=== PATIENT | male | born 1955 | race Caucasian/White ===

== ENCOUNTER 2017-05-06 22:16 | Inpatient (IN) ==
[2017-05-06] MEDS ORDERED: *HR* Dextrose 50 % in Water (Syg) 50 ML SYRINGE IVP ONE (23:12)
[2017-05-06 23:21] LABS: Basophils # 0.1 K/mcL (0.0-0.2); Basophils % 0.9 %; Eosinophils # 0.4 K/mcL (0.0-0.6); Eosinophils % 3.2 %; Hematocrit 46.4 % (37.5-50.1); Hemoglobin 15.2 g/dL (12.9-16.9); Immature Granulocytes % 0.5 % (0-4); Lymphocytes # 4.6 K/mcL (0.6-4.6); Lymphocytes % 35.5 %; Mean Corpuscular HGB Conc 32.8 g/dL (31.6-35.5); Mean Corpuscular Hemoglobin 27.7 pg (28.0-33.3); Mean Corpuscular Volume 84.5 fL (83.0-100.0); Mean Platelet Volume 10.1 fL (9.4-12.4); Monocytes # 0.7 K/mcL (0.0-1.3); Monocytes % 5.5 %; Platelet Count 351 K/mcL (140-400); Red Blood Count 5.49 M/mcL (4.19-5.50); Red Cell Distribution Width 14.9 % (11.5-14.5); Segmented Neutrophils % 54.4 %
[2017-05-06 23:29] LABS: BUN/Creatinine Ratio 17 (6-26); Blood Urea Nitrogen 13 mg/dL (8-26); Calcium 9.7 mg/dL (8.6-10.8); Carbon Dioxide 20 mEq/L (19-29); Chloride 105 mEq/L (98-109); Osmolality,Calculated 279 (280-300); Potassium 3.9 mEq/L (3.5-4.5); Sodium 136 mEq/L (136-145); eGFR For African Americans > 60 (> 60); eGFR For Non-African Americans > 60 (> 60)
[2017-05-06 23:31] LABS: Glucose 35 mg/dL (70-99)
[2017-05-06 23:33] LABS: INR 5.2; Prothrombin Time 59.5 Seconds (9.4-12.1)
--- NOTE | 2017-05-07 00:53 | Emergency Department Note ---
Disposition Clinical Impression: Hypoglycemia, Elevated INR (international normalized ratio) due to prior anticoagulant medication ingestion Altered mental status Qualifiers: Altered mental status type: transient alteration of awareness Qualified Code(s) : R40.4 - Transient alteration of awareness Disposition: Transfer SNF Condition: Good Instructions: Diabetic Hypoglycemia (ED) Reasons to Return/Additional Instructions: Hold Coumadin dose for 2 days and then recheck pro-time. Follow-up tomorrow with urology as scheduled. Follow-up with primary care provider in next 1-2 days. Monitor blood sugar closely for the next 48 hours. Return to the emergency department as needed if symptoms persist or worsen or other symptoms develop or any other concerns. Referrals: Seven Jean MD [Primary Care Provider] - Forms: ED Satisfaction Letter Time of Disposition: 01:14 Altered Mental Status HPI - General Chief Complaint: ED Altered Mental Status Stated Complaint: AMS Time Seen by Provider: 05/06/17 22:16 Source: family, EMS Limitations: altered mental status Nursing Notes Reviewed: Yes Vital Signs Reviewed: Yes - History of Present Illness HPI Narrative: 62-year-old male presents to the emergency department for altered mental status from a local [facility]. He was found unresponsive. He has a history of 2 strokes in December and is in the [facility] for this. He has aphasia. Patient unresponsive with head and eyes deviated to the right. EMS reports fingerstick blood sugar of 18. He was given glucagon per EMS prior to arrival and is starting to open his eyes a little more and move his eyes a little. Fingerstick blood sugar here in the emergency department on arrival was 43. IV established and patient was given an amp of D50 and began to move and wake up immediately and after observation and is now back to his baseline mental status per family. reports that they just started him on some antibiotics for UTI. He has an indwelling Ya which has been in place for about 3 weeks per . Very foul appearing cloudy urine in the Ya tubing and bag. Ya catheter was removed. It has not appointment with urology tomorrow. The tech was unable to insert a new Ya and patient was urinating after the Ya was removed. We are going to leave the Ya out for now since he has an appointment tomorrow. complaint: altered mental status - Related Data Home Medications Medication Instructions Recorded Confirmed Acetaminophen [Non-Aspirin] 325 mg PO 03/17/17 Amlodipine Besylate 10 mg PO 03/17/17 Atorvastatin Calcium [Lipitor] 80 mg PO 03/17/17 Carvedilol [Coreg] 6.25 mg PO BIDWM 03/17/17 03/17/17 Chlorhexidine [Chlorhexidine 1 ml MC 03/17/17 Flavor] DULoxetine [Cymbalta] 30 mg PO DAILY 03/17/17 03/17/17 GlipiZIDE [Glipizide ER] 10 mg PO 03/17/17 Ipratropium/Albuterol Neb [Duoneb] 3 ml IH Q6HR 03/17/17 03/17/17 Metoclopramide [Reglan] 10 mg PO 03/17/17 Pantoprazole Sodium [Protonix] 40 mg PO 03/17/17 Quetiapine Fumarate [Quetiapine 50 mg PO 03/17/17 Fumarate ER] Sulfamethoxazole/Trimeth Oral 20 ml PO BID 03/17/17 03/17/17 [Bactrim Susp 400-80mg/10mL] Warfarin [Coumadin] 5 mg PO 1800 03/17/17 03/17/17 clonazePAM [Klonopin] 0.5 mg PO BID 03/17/17 03/17/17 metFORMIN [Glucophage] 1,000 mg PO BIDWM 03/17/17 03/17/17 Allergies Allergy/AdvReac Type Severity Reaction Status Date / Time amlodipine [From Norvasc] Allergy See Verified 03/26/17 11:34 Comments Amoxicillin [From Trimox] Allergy See Verified 03/26/17 11:34 Comments Penicillins Allergy See Verified 03/26/17 11:34 Comments Limitations: ROS unobtainable due to patients medical condition Past Medical History - Past Medical History Medical history: Reports: CHF, COPD, CVA, diabetes, hyperlipidemia, hypertension , myocardial infarction, valvular heart disease, other Psychiatric history: Reports: depression - Social History Smoking Status: Former smoker Smokeless Tobacco Status: No Alcohol use: Reports: none Drug use: Reports: none Physical Exam - General Limitations: altered mental status General appearance: in no apparent distress, obtunded - Head Head exam: atraumatic - Eye Eye exam: Present: PERRL, other (Eyes deviated to the right mostly but was some spontaneous movement in different directions.). Absent: conjunctival injection - ENT ENT exam: normal oropharynx, mucous membranes moist - Neck Neck exam: Absent: lymphadenopathy - Chest Chest inspection: Present: normal inspection, symmetric chest wall rise - Respiratory Respiratory exam: Present: normal lung sounds bilaterally. Absent: respiratory distress, wheezes - Cardiovascular Cardiovascular exam: Present: regular rate, normal rhythm, normal heart sounds - Abdominal Exam Abdominal exam: Present: soft, Non-Tender, normal bowel sounds - Skin Skin exam: Present: warm, dry. Absent: cyanosis, diaphoresis Course Course Narrative: Patient presented from [facility] unresponsive. EMS fingerstick was 18 and fingerstick here was 43. IV established and patient given IV D50 with return to his baseline mental status. Ya catheter removed. Fingerstick blood sugar or treatment or to discharge was 115. Patient also noted to have an elevated INR. Recommend withhold Coumadin for 2 days and recheck. Vital Signs Temperature 97.1 F L 05/06/17 22:17 Pulse Rate 75 05/06/17 22:17 Respiratory Rate 12 05/06/17 22:17 Blood Pressure 146/87 05/06/17 22:17 O2 Sat by Pulse Oximetry 95 05/06/17 22:17 Temperature 97.1 F L 05/06/17 22:17 Pulse Rate 80 05/07/17 00:17 Respiratory Rate 14 05/07/17 00:17 Blood Pressure 136/91 05/07/17 00:17 O2 Sat by Pulse Oximetry 100 05/07/17 00:17 Oxygen Delivery Oxygen Delivery Room Air Altered Mental Status - Lab Data Lab results reviewed: Yes I reviewed the patient's lab results. Result diagrams: 05/06/17 22:23 05/06/17 22:23 Lab Results 05/06/17 05/06/17 05/06/17 Range/Units 22:18 22:23 22:23 WBC 12.9 H (4.3-11.1) K/mcL RBC 5.49 (4.19-5.50) M/mcL Hgb 15.2 (12.9-16.9) g/dL Hct 46.4 (37.5-50.1) % MCV 84.5 (83.0-100.0) fL MCH 27.7 L (28.0-33.3) pg MCHC 32.8 (31.6-35.5) g/dL RDW 14.9 H (11.5-14.5) % Plt Count 351 (140-400) K/mcL MPV 10.1 (9.4-12.4) fL Immature Gran % 0.5 (0-4) % Seg Neutrophils % 54.4 % Lymphocytes % 35.5 % Monocytes % 5.5 % Eosinophils % 3.2 % Basophils % 0.9 % Neutrophils # 7.0 (1.6-8.9) K/mcL Lymphocytes # 4.6 (0.6-4.6) K/mcL Monocytes # 0.7 (0.0-1.3) K/mcL Eosinophils # 0.4 (0.0-0.6) K/mcL Basophils # 0.1 (0.0-0.2) K/mcL PT 59.5 H* (9.4-12.1) Seconds INR 5.2 H* Sodium (136-145) mEq/L Potassium (3.5-4.5) mEq/L Chloride (98-109) mEq/L Carbon Dioxide (19-29) mEq/L BUN (8-26) mg/dL Creatinine (0.72-1.25) mg/dL Est GFR ( Amer) (> 60) Est GFR (Non-Af Amer) (> 60) BUN/Creatinine Ratio (6-26) Glucose (70-99) mg/dL POC Glucose 43 L* (58-89) Calculated Osmolality (280-300) Calcium (8.6-10.8) mg/dL Troponin I (0-0.03) ng/mL 05/06/17 05/06/17 05/07/17 Range/Units 22:23 22:23 00:13 WBC (4.3-11.1) K/mcL RBC (4.19-5.50) M/mcL Hgb (12.9-16.9) g/dL Hct (37.5-50.1) % MCV (83.0-100.0) fL MCH (28.0-33.3) pg MCHC (31.6-35.5) g/dL RDW (11.5-14.5) % Plt Count (140-400) K/mcL MPV (9.4-12.4) fL Immature Gran % (0-4) % Seg Neutrophils % % Lymphocytes % % Monocytes % % Eosinophils % % Basophils % % Neutrophils # (1.6-8.9) K/mcL Lymphocytes # (0.6-4.6) K/mcL Monocytes # (0.0-1.3) K/mcL Eosinophils # (0.0-0.6) K/mcL Basophils # (0.0-0.2) K/mcL PT (9.4-12.1) Seconds INR Sodium 136 (136-145) mEq/L Potassium 3.9 (3.5-4.5) mEq/L Chloride 105 (98-109) mEq/L Carbon Dioxide 20 (19-29) mEq/L BUN 13 (8-26) mg/dL Creatinine 0.77 (0.72-1.25) mg/dL Est GFR ( Amer) > 60 (> 60) Est GFR (Non-Af Amer) > 60 (> 60) BUN/Creatinine Ratio 17 (6-26) Glucose 35 L* (70-99) mg/dL POC Glucose 115 H (58-89) Calculated Osmolality 279 L (280-300) Calcium 9.7 (8.6-10.8) mg/dL Troponin I 0.02 (0-0.03) ng/mL - Radiology Data Radiology results reviewed: Yes I reviewed the patient's radiology results. Chest X-Ray 05/06/17 23:12 IMPRESSION: Hazy opacity in the left lung base. This is suggestive us left pleural effusion and partial left lower lobe atelectasis. Underlying pneumonia is not excluded D/ / Rayshawn Barrientos MD / Rayshawn Barrientos MD Interpreting Provider: Rayshawn Barrientos MD - EKG Data EKG attestation: Yes I reviewed and interpreted this EKG. EKG results narrative: Normal sinus rhythm, heart rate 75, left axis deviation, no acute change. EKG shows normal: sinus rhythm Rate: normal Rhythm: NSR Interpretation: no acute changes TPA Checklist - LKW: 3-4.5 hrs Add. Warnings/Precautions Patient/family understanding: The patient/family members have been counseled and understood the risk, benefit , and alternatives of treatment.
[2017-05-07] MEDS ORDERED: *HR* Dextrose 50 % in Water (Syg) 50 ML SYRINGE IVP ONE (01:34)
--- NOTE | 2017-05-07 02:11 | Emergency Department Note ---
Disposition Clinical Impression: Hypoglycemia, Elevated INR (international normalized ratio) due to prior anticoagulant medication ingestion Altered mental status Qualifiers: Altered mental status type: transient alteration of awareness Qualified Code(s) : R40.4 - Transient alteration of awareness Disposition: Admitted As Inpatient Condition: Fair Altered Mental Status HPI - General Chief Complaint: ED Altered Mental Status Stated Complaint: AMS Source: family, EMS Limitations: altered mental status - Related Data Home Medications Medication Instructions Recorded Confirmed Acetaminophen [Non-Aspirin] 325 mg PO 03/17/17 Amlodipine Besylate 10 mg PO 03/17/17 Atorvastatin Calcium [Lipitor] 80 mg PO 03/17/17 Carvedilol [Coreg] 6.25 mg PO BIDWM 03/17/17 03/17/17 Chlorhexidine [Chlorhexidine 1 ml MC 03/17/17 Flavor] DULoxetine [Cymbalta] 30 mg PO DAILY 03/17/17 03/17/17 GlipiZIDE [Glipizide ER] 10 mg PO 03/17/17 Ipratropium/Albuterol Neb [Duoneb] 3 ml IH Q6HR 03/17/17 03/17/17 Metoclopramide [Reglan] 10 mg PO 03/17/17 Pantoprazole Sodium [Protonix] 40 mg PO 03/17/17 Quetiapine Fumarate [Quetiapine 50 mg PO 03/17/17 Fumarate ER] Sulfamethoxazole/Trimeth Oral 20 ml PO BID 03/17/17 03/17/17 [Bactrim Susp 400-80mg/10mL] Warfarin [Coumadin] 5 mg PO 1800 03/17/17 03/17/17 clonazePAM [Klonopin] 0.5 mg PO BID 03/17/17 03/17/17 metFORMIN [Glucophage] 1,000 mg PO BIDWM 03/17/17 03/17/17 Allergies Allergy/AdvReac Type Severity Reaction Status Date / Time amlodipine [From Norvasc] Allergy See Verified 03/26/17 11:34 Comments Amoxicillin [From Trimox] Allergy See Verified 03/26/17 11:34 Comments Penicillins Allergy See Verified 03/26/17 11:34 Comments Past Medical History - Past Medical History Medical history: Reports: CHF, COPD, CVA, diabetes, hyperlipidemia, hypertension , myocardial infarction, valvular heart disease, other Psychiatric history: Reports: depression - Social History Smoking Status: Former smoker Smokeless Tobacco Status: No Alcohol use: Reports: none Drug use: Reports: none Physical Exam - General Limitations: altered mental status General appearance: in no apparent distress, obtunded Course Course Narrative: Plan was to discharge the patient back to the senior living however this before returning to the senior living patient became a little less responsive and repeat fingerstick blood sugar had dropped back down to 55. He was given another amp of D50. On discussing with the senior living it was learned that the patient is not on insulin and is just on metformin. Decision was made to go ahead and admit patient here since he has recurrent hypoglycemia on an oral agent. - Consultations Consultation #1: Case discussed with the hospitalist, Dr. Ortega, and she accepted the admission of the patient. Time: 02:00 Vital Signs Temperature 97.1 F L 05/06/17 22:17 Pulse Rate 75 05/06/17 22:17 Respiratory Rate 12 05/06/17 22:17 Blood Pressure 146/87 05/06/17 22:17 O2 Sat by Pulse Oximetry 95 05/06/17 22:17 Temperature 97.1 F L 05/06/17 22:17 Pulse Rate 80 05/07/17 00:17 Respiratory Rate 14 05/07/17 00:17 Blood Pressure 136/91 05/07/17 00:17 O2 Sat by Pulse Oximetry 100 05/07/17 00:17 Oxygen Delivery Oxygen Delivery Room Air Altered Mental Status - Lab Data Result diagrams: 05/06/17 22:23 05/06/17 22:23 Lab Results 05/06/17 05/06/17 05/06/17 Range/Units 22:18 22:23 22:23 WBC 12.9 H (4.3-11.1) K/mcL RBC 5.49 (4.19-5.50) M/mcL Hgb 15.2 (12.9-16.9) g/dL Hct 46.4 (37.5-50.1) % MCV 84.5 (83.0-100.0) fL MCH 27.7 L (28.0-33.3) pg MCHC 32.8 (31.6-35.5) g/dL RDW 14.9 H (11.5-14.5) % Plt Count 351 (140-400) K/mcL MPV 10.1 (9.4-12.4) fL Immature Gran % 0.5 (0-4) % Seg Neutrophils % 54.4 % Lymphocytes % 35.5 % Monocytes % 5.5 % Eosinophils % 3.2 % Basophils % 0.9 % Neutrophils # 7.0 (1.6-8.9) K/mcL Lymphocytes # 4.6 (0.6-4.6) K/mcL Monocytes # 0.7 (0.0-1.3) K/mcL Eosinophils # 0.4 (0.0-0.6) K/mcL Basophils # 0.1 (0.0-0.2) K/mcL PT 59.5 H* (9.4-12.1) Seconds INR 5.2 H* Sodium (136-145) mEq/L Potassium (3.5-4.5) mEq/L Chloride (98-109) mEq/L Carbon Dioxide (19-29) mEq/L BUN (8-26) mg/dL Creatinine (0.72-1.25) mg/dL Est GFR ( Amer) (> 60) Est GFR (Non-Af Amer) (> 60) BUN/Creatinine Ratio (6-26) Glucose (70-99) mg/dL POC Glucose 43 L* (58-89) Calculated Osmolality (280-300) Calcium (8.6-10.8) mg/dL Troponin I (0-0.03) ng/mL 05/06/17 05/06/17 05/07/17 Range/Units 22:23 22:23 00:13 WBC (4.3-11.1) K/mcL RBC (4.19-5.50) M/mcL Hgb (12.9-16.9) g/dL Hct (37.5-50.1) % MCV (83.0-100.0) fL MCH (28.0-33.3) pg MCHC (31.6-35.5) g/dL RDW (11.5-14.5) % Plt Count (140-400) K/mcL MPV (9.4-12.4) fL Immature Gran % (0-4) % Seg Neutrophils % % Lymphocytes % % Monocytes % % Eosinophils % % Basophils % % Neutrophils # (1.6-8.9) K/mcL Lymphocytes # (0.6-4.6) K/mcL Monocytes # (0.0-1.3) K/mcL Eosinophils # (0.0-0.6) K/mcL Basophils # (0.0-0.2) K/mcL PT (9.4-12.1) Seconds INR Sodium 136 (136-145) mEq/L Potassium 3.9 (3.5-4.5) mEq/L Chloride 105 (98-109) mEq/L Carbon Dioxide 20 (19-29) mEq/L BUN 13 (8-26) mg/dL Creatinine 0.77 (0.72-1.25) mg/dL Est GFR ( Amer) > 60 (> 60) Est GFR (Non-Af Amer) > 60 (> 60) BUN/Creatinine Ratio 17 (6-26) Glucose 35 L* (70-99) mg/dL POC Glucose 115 H (58-89) Calculated Osmolality 279 L (280-300) Calcium 9.7 (8.6-10.8) mg/dL Troponin I 0.02 (0-0.03) ng/mL 05/07/17 Range/Units 01:24 WBC (4.3-11.1) K/mcL RBC (4.19-5.50) M/mcL Hgb (12.9-16.9) g/dL Hct (37.5-50.1) % MCV (83.0-100.0) fL MCH (28.0-33.3) pg MCHC (31.6-35.5) g/dL RDW (11.5-14.5) % Plt Count (140-400) K/mcL MPV (9.4-12.4) fL Immature Gran % (0-4) % Seg Neutrophils % % Lymphocytes % % Monocytes % % Eosinophils % % Basophils % % Neutrophils # (1.6-8.9) K/mcL Lymphocytes # (0.6-4.6) K/mcL Monocytes # (0.0-1.3) K/mcL Eosinophils # (0.0-0.6) K/mcL Basophils # (0.0-0.2) K/mcL PT (9.4-12.1) Seconds INR Sodium (136-145) mEq/L Potassium (3.5-4.5) mEq/L Chloride (98-109) mEq/L Carbon Dioxide (19-29) mEq/L BUN (8-26) mg/dL Creatinine (0.72-1.25) mg/dL Est GFR ( Amer) (> 60) Est GFR (Non-Af Amer) (> 60) BUN/Creatinine Ratio (6-26) Glucose (70-99) mg/dL POC Glucose 55 L (58-89) Calculated Osmolality (280-300) Calcium (8.6-10.8) mg/dL Troponin I (0-0.03) ng/mL TPA Checklist - LKW: 3-4.5 hrs Add. Warnings/Precautions Patient/family understanding: The patient/family members have been counseled and understood the risk, benefit , and alternatives of treatment.
--- NOTE | 2017-05-07 03:14 | Internal Med History&Physical ---
Date of Encounter: 05/07/17 Time of Encounter: 03:06 Assessment and Plan (1) Hypoglycemia Current visit: Yes Status: Acute Patient is a general medical floor with episode of hypoglycemia with glucose lower cord at 18. Received D50 in the emergency department with slight elevation in glucose and then became hypoglycemic at 50. Glucose 118 at time of transfer to floor. - Patient's medication list chemistries glipizide. Unknown if patient still taking subcutaneous insulin at nursing facility. - Patient alert and oriented interactive, stable. - Patient is urinary tract infection but does not appear to be septic. Plan: - Admit to general medical floor - Every hour glucose checks for 6 hours - D50 and normal saline drip at 75 ML's per hour - Glucagon available for hypoglycemic events. (2) Urinary tract infection Current visit: Yes Status: Acute Patient currently receiving oral treatment with TMP-SMX for urinary tract infection. Patient's family present out of hospital urine culture results demonstrated Klebsiella and Escherichia coli that were pansensitive. Plan: - Drainage of indwelling catheter - IV ceftriaxone 1000 mg daily - Urinalysis with reflex culture Qualifiers: Qualified Code(s): N39.0 - Urinary tract infection, site not specified (3) Mechanical heart valve present Current visit: Yes Status: Acute Mechanical heart valve: - Patient on warfarin therapy currently supratherapeutic with an INR 5.5 Plan: -INR goal of 3.0-3.5 (4) Coronary artery disease Current visit: Yes Status: Acute Significant medical history for coronary artery disease, previous [place], ischemic stroke, CABG, femorofemoral bypass. Plan: -We will continue atorvastatin and beta dixon Qualifiers: Qualified Code(s): I25.10 - Atherosclerotic heart disease of [place] coronary artery without angina pectoris (5) Elevated INR (international normalized ratio) due to prior anticoagulant medication ingestion Current visit: Yes Status: Acute INR 5.5, goal 3.0-3.5 Plan: - Pharmacy to dose warfarin, we will hold today's dose. Internal Medicine - H&P: HPI Chief complaint: hypoglycemia Admitted From: Emergency Dept Plans for Post Hospital Care: Home History of present illness: Mr. Carrasco is a 62 year old male past medical hx of DM, Hemorrhagic stroke, ischemic stroke, CABG, mechanical heart valve, aphasia and right sided weakness presents to the emergency department from his long-term after he was found to be altered and a glucose of 18. He does not speak so his at bedside provides details. She went to see him around noon yesterday and noticed that he was not responding like his normal self. She usually shows up to help care for him and feed him. She was concerned for his condition and they checked his glucose and found it to be 18. She says he has had low glucoses in the past but usually only as low as 90. He take glipizide and is unsure if he is still receiving SQ insulin. He nods yes to being diaphoretic the past couple of days and had some episodes of diarrhea but his says they checked for C.diff and it is negative thus far. He is currently receiving TMP-SMX for a urinary tract infection. He nods no vomiting, constipation. He has an indwelling catheter for which his says he supposed to see urology for further evaluation. Past Med Surg Social Fam HX - Past Medical History Medical history: CHF, COPD, CVA, diabetes, hyperlipidemia, hypertension, myocardial infarction, valvular heart disease, other Psychiatric history: depression - Social History Smoking Status: Former smoker Smokeless Tobacco Status: No Alcohol use: none Drug use: none - Family History Mother Living Status: Hx Family Cardiac Disorders: Yes Hx Family Endocrine Disorder: Yes (DM) Father Living Status: Hx Family Cardiac Disorders: Yes Hx Family Endocrine Disorder: Yes (DM) Internal Medicine - H&P: Meds Acetaminophen [Non-Aspirin] 325 mg PO 03/17/17 [History] Amlodipine Besylate 10 mg PO 03/17/17 [History] Atorvastatin Calcium [Lipitor] 80 mg PO 03/17/17 [History] Carvedilol [Coreg] 6.25 mg PO BIDWM 03/17/17 [History] Chlorhexidine [Chlorhexidine Flavor] 1 ml MC 03/17/17 [History] DULoxetine [Cymbalta] 30 mg PO DAILY 03/17/17 [History] GlipiZIDE [Glipizide ER] 10 mg PO 03/17/17 [History] Ipratropium/Albuterol Neb [Duoneb] 3 ml IH Q6HR 03/17/17 [History] Metoclopramide [Reglan] 10 mg PO 03/17/17 [History] Pantoprazole Sodium [Protonix] 40 mg PO 03/17/17 [History] Quetiapine Fumarate [Quetiapine Fumarate ER] 50 mg PO 03/17/17 [History] Sulfamethoxazole/Trimeth Oral [Bactrim Susp 400-80mg/10mL] 20 ml PO BID [History] Warfarin [Coumadin] 5 mg PO 1800 03/17/17 [History] clonazePAM [Klonopin] 0.5 mg PO BID 03/17/17 [History] metFORMIN [Glucophage] 1,000 mg PO BIDWM 03/17/17 [History] Allergies amlodipine [From Norvasc] Allergy (Verified 03/26/17 11:34) See Comments Amoxicillin [From Trimox] Allergy (Verified 03/26/17 11:34) See Comments Penicillins Allergy (Verified 03/26/17 11:34) See Comments All Systems PM: A 10-system review of systems was performed and is negative for pertinent findings except as documented above in the HPI. - Constitutional Constitutional: night sweats, no chills, no fever(s) - EENT Eyes: no change in vision, no discharge, no pain, no photophobia Ears: no ear discharge, no ear pain, no tinnitus Nose, mouth and throat: no dysphagia, no nasal discharge, no neck pain, no sore throat - Cardiovascular Cardiovascular ROS IM: no chest pain, no diaphoresis, no dyspnea, no lightheadedness, no palpitations, no syncope - Respiratory Respiratory: no cough, no dyspnea, no wheezing, no excessive phlegm production - Gastrointestinal Gastrointestinal: no abdominal pain, no diarrhea, no hematemesis, no hematochezia, no melena, no nausea, no vomiting - Musculoskeletal Musculoskeletal ROS IM: no numbness, no tingling - Integumentary Integumentary IM: no rash, no unusual bruising - Neurological Neurological ROS: no confusion, no convulsions, no focal weakness, no numbness, no tingling, no tremor(s) - Hematologic/Lymphatic Hematologic/Lymphatic: no easy bruising - Constitutional Vitals: Temp Pulse Resp BP Pulse Ox 97.1 F L 80 18 126/91 100 05/06/17 22:17 05/07/17 00:17 05/07/17 02:36 05/07/17 02:36 05/07/17 00:17 Exam: General: Patient alert, awake, oriented 3, interactive, in no acute distress HEENT: Normocephalic, atraumatic, pupils equal reactive to light, nasal cavity patent and open septum median position, oral mucosa moist, uvula midline, neck supple trachea midline no palpable lymphadenopathy, no thyromegaly. Old trachea scar. Chest: Symmetric bilateral correlating with respiratory effort, effort nonlabored. Cardiac: Regular rate and rhythm, positive S1 and S2. no bruits appreciated bilateral carotids, Radial pulses 2+ bilateral, posterior tibial and dorsal pedal pulses 2+ bilateral. Respiratory: Expiratory rhonchi in right lower lung base, clear to auscultation all lung [place]. Abdomen: Soft, nontender, positive bowel sounds, no palpable masses appreciated on examination. Multiple prior surgical scars. Extremities: Symmetric bilateral, bilateral lower extremities without erythema or edema, right upper and lower extremity completely flaccid, patient is able to move left extremities. Neurologic: Patient is a failure, tongue midline face symmetric. Internal Med - H&P Results - Labs CBC & Chem 7: 05/06/17 22:23 05/06/17 22:23 Labs: Short CBC 05/06/17 Range/Units 22:23 WBC 12.9 H (4.3-11.1) K/mcL Hgb 15.2 (12.9-16.9) g/dL Hct 46.4 (37.5-50.1) % Plt Count 351 (140-400) K/mcL Neutrophils # 7.0 (1.6-8.9) K/mcL BMP 05/06/17 22:23 Sodium 136 Potassium 3.9 Chloride 105 Carbon Dioxide 20 BUN 13 Creatinine 0.77 Glucose 35 L* Calcium 9.7 Cardiac Enzymes 05/06/17 Range/Units 22:23 Troponin I 0.02 (0-0.03) ng/mL - Impressions ITS Impressions Chest X-Ray 05/06/17 23:12 IMPRESSION: Hazy opacity in the left lung base. This is suggestive us left pleural effusion and partial left lower lobe atelectasis. Underlying pneumonia is not excluded D/ / Rayshawn Barrientos MD / Rayshawn Barrientos MD Interpreting Provider: Rayshawn Barrientos MD
[2017-05-07] MEDS ORDERED: Naloxone 0.4 MG/ML INJ IVP PRN (03:16)
[2017-05-07] MEDS ORDERED: *HR* Dextrose 50 % in Water (Syg) 50 ML SYRINGE IVP PRN (03:25)
[2017-05-07] MEDS ORDERED: Dextrose Gel 15 GM PO PRN ×2 (03:25)
[2017-05-07] MEDS ORDERED: D5% in Water 1,000 ML IVC PRN (03:25)
--- NOTE | 2017-05-07 03:31 | Event Note ---
Date of Encounter: 05/07/17 Time of Encounter: 03:30 Patient seen and examined with medical receptionist medical assistant. Prolonged hypoglycemia. Will start on the D5 drip. Sugar check every one hour. Recent UTI with E. coli and Klebsiella sensitive to ceftriaxone will start. Repeat urinalysis. He has been on Bactrim. INR is 5 but No new focal neurological deficits. According to life useful code. Observation admission
[2017-05-07] MEDS: D5% in 0.9% NACL 1,000 ML IVC SCH (03:54)
[2017-05-07 04:00] LABS: Basophils # 0.1 K/mcL (0.0-0.2); Basophils % 0.5 %; Eosinophils # 0.1 K/mcL (0.0-0.6); Eosinophils % 1.3 %; Hematocrit 43.8 % (37.5-50.1); Hemoglobin 14.3 g/dL (12.9-16.9); Immature Granulocytes % 0.5 % (0-4); Lymphocytes # 2.1 K/mcL (0.6-4.6); Lymphocytes % 20.8 %; Mean Corpuscular HGB Conc 32.6 g/dL (31.6-35.5); Mean Corpuscular Hemoglobin 27.8 pg (28.0-33.3); Mean Corpuscular Volume 85.2 fL (83.0-100.0); Mean Platelet Volume 9.6 fL (9.4-12.4); Monocytes # 0.4 K/mcL (0.0-1.3); Neutrophils # 7.5 K/mcL (1.6-8.9); Platelet Count 264 K/mcL (140-400); Red Blood Count 5.14 M/mcL (4.19-5.50); Red Cell Distribution Width 14.8 % (11.5-14.5); Segmented Neutrophils % 72.9 %
[2017-05-07 04:12] LABS: Alanine Aminotransferase 8 Units/L (0-55); Albumin/Globulin Ratio 0.9 (1.1-2.2); Alkaline Phosphatase 111 Units/L (38-126); Aspartate Amino Transferase 11 Units/L (5-34); BUN/Creatinine Ratio 17 (6-26); Bilirubin,Total 0.5 mg/dL (0.2-1.2); Blood Urea Nitrogen 13 mg/dL (8-26); Calcium 9.5 mg/dL (8.6-10.8); Carbon Dioxide 23 mEq/L (19-29); Chloride 105 mEq/L (98-109); Globulin 3.4 g/dL (2.4-3.5); Glucose 70 mg/dL (70-99); Magnesium 1.5 mg/dL (1.6-2.6); Osmolality,Calculated 281 (280-300); Phosphorous 3.6 mg/dL (2.3-4.7); Potassium 4.1 mEq/L (3.5-4.5); Sodium 136 mEq/L (136-145); Total Protein 6.4 g/dL (6.0-8.3); eGFR For African Americans > 60 (> 60); eGFR For Non-African Americans > 60 (> 60)
[2017-05-07] MEDS: Magnesium Oxide 400 MG TABLET PO SCH ×2 (10:01→19:42)
--- NOTE | 2017-05-07 10:11 | Event Note ---
Date of Encounter: 05/07/17 Time of Encounter: 09:25 Patient was admitted from [facility] for hypoglycemia. He is on a D5 drip at this time and is getting Accu-Cheks every hour 6. Last one was normal at 79. Diabetic medications and been stopped. Patient has glucagon ordered for hypoglycemic events. Patient is nonverbal and has right-sided weakness from prior CVA. He is alert, and can nod his head yes and response to questions. Patient has a mechanical heart valve and is on warfarin, currently dosed by pharmacy. INR is elevated at 5.2. We will continue to monitor labs. Patient's magnesium is 1.5. I have ordered mag ox 400 mg by mouth twice a day. Patient was to have a urology appointment today with Dr. Mejia, primary nurses attempting to reach him to see if he can see the patient while in the hospital. He has a UA pending and arrived from the detention with a Ya. ER attempted to change it, however could not insert a new Ya due to enlarged prostate. He was receiving Bactrim for urinary tract infection at the detention. Patient family had urine culture from the detention that showed Klebsiella and Escherichia coli that were pansensitive. Is currently receiving Rocephin 1 g daily, we will need to collect the urine and wait on the micro-and culture. Patient has significant history of coronary artery disease with prior [place], stroke, CABG, he is already on a statin and a beta dixon. We will continue those. He also has rhonchi heard in left anterior and posterior lung barlow. Chest x-ray showed left pleural effusion with underlying pneumonia not being excluded. Addition to the Rocephin, I am adding Zithromax IV, duonebs, and albuterol treatments prn. Has no leukocytosis and no fever patient does indicate that he has a cough. He does not meet sepsis criteria currently. His abdomen is soft, rounded nontender to palpation. He does have +1 bilateral pedal pulses. We will continue to closely monitor blood sugars and respiratory status.
[2017-05-07] MEDS ORDERED: Albuterol 2.5 MG/3 ML NEBULIZER IH PRN (10:12)
[2017-05-07] MEDS: Azithromycin 500 MG in D5% in Water 250 ML IVPB SCH (11:38)
[2017-05-07] MEDS: Ipratropium/Albuterol Neb 3 ML IH SCH ×3 (11:47→19:46)
[2017-05-07 12:02] LABS: Bilirubin,Urine Negative (Negative); Blood,Urine Large (Negative); Clarity,Urine Turbid (Clear); Color,Urine Yellow (Yellow); Glucose,Urine (UA) Normal (Normal); Ketones,Urine Negative (Negative); Leukocyte Esterase,Urine Large (Negative); Nitrite,Urine Positive (Negative); PH,Urine 5.5 pH Units (5.0-8.0); Protein,Urine 30 mg/dL (Neg-Trace); Specific Gravity,Urine 1.023 (1.010-1.025); Urobilinogen,Urine Normal (Normal)
[2017-05-07 12:04] LABS: Bacteria,Urine None Seen per hpf (None-Few); Hyaline Casts,Urine None Seen per lpf (None-Few); Squamous Epithelial Cell,Urine Moderate per lpf (None-Few); WBC,Urine TNTC per hpf (0-3)
[2017-05-07 12:11] LABS: RBC,Urine 15-30 per hpf (0-3)
--- NOTE | 2017-05-07 12:30 | Electrocardiograph Report ---
[place] [id number] Test Date: 2017-05-06 Pat Name: Hunter Carrasco Department: 103 Room: 3B22 Gender: M Founding Partner: : [id number] Requested By: Jasper Roberts Order Number: [id number] Reading MD: Dean Garcia MD Measurements Intervals [place] Rate: 75 P: 60 SC: 199 QRS: -34 QRSD: 130 T: 126 QT: 405 QTc: 434 Interpretive Statements SINUS RHYTHM MARKED LEFT AXIS DEVIATION Poor R wave progression Electronically Signed On 05-07-2017 12:28:45 EDT by Dean Garcia MD
[2017-05-07] MEDS ORDERED: Warfarin perPT PO PRN (18:00)
[2017-05-07] MEDS: Acetaminophen 325 MG TABLET PO PRN (19:42)
[2017-05-08] MEDS: Ipratropium/Albuterol Neb 3 ML IH SCH ×7 (00:16→23:29)
[2017-05-08] MEDS: Acetaminophen 325 MG TABLET PO PRN (05:10)
[2017-05-08 05:22] LABS: Basophils # 0.1 K/mcL (0.0-0.2); Basophils % 0.9 %; Eosinophils # 0.2 K/mcL (0.0-0.6); Eosinophils % 3.6 %; Hematocrit 39.7 % (37.5-50.1); Hemoglobin 13.1 g/dL (12.9-16.9); Immature Granulocytes % 0.3 % (0-4); Lymphocytes # 2.2 K/mcL (0.6-4.6); Lymphocytes % 33.5 %; Mean Corpuscular Hemoglobin 27.9 pg (28.0-33.3); Mean Corpuscular Volume 84.5 fL (83.0-100.0); Mean Platelet Volume 9.4 fL (9.4-12.4); Monocytes # 0.4 K/mcL (0.0-1.3); Neutrophils # 3.7 K/mcL (1.6-8.9); Platelet Count 231 K/mcL (140-400); Red Cell Distribution Width 14.8 % (11.5-14.5); Segmented Neutrophils % 55.7 %
[2017-05-08 05:36] LABS: INR 6.1; Prothrombin Time 69.3 Seconds (9.4-12.1)
[2017-05-08 05:38] LABS: BUN/Creatinine Ratio 9 (6-26); Blood Urea Nitrogen 6 mg/dL (8-26); Calcium 8.7 mg/dL (8.6-10.8); Carbon Dioxide 21 mEq/L (19-29); Chloride 110 mEq/L (98-109); Glucose 101 mg/dL (70-99); Osmolality,Calculated 284 (280-300); Potassium 3.5 mEq/L (3.5-4.5); Sodium 138 mEq/L (136-145); eGFR For African Americans > 60 (> 60); eGFR For Non-African Americans > 60 (> 60)
[2017-05-08] MEDS: D5% in 0.9% NACL 1,000 ML IVC SCH ×2 (06:04→21:38)
[2017-05-08] MEDS: Magnesium Oxide 400 MG TABLET PO SCH ×2 (09:25→20:32)
[2017-05-08] MEDS ORDERED: amLODIPine 5 MG TABLET PO SCH (11:45)
[2017-05-08] MEDS ORDERED: Lisinopril 20 MG TABLET PO SCH (11:45)
[2017-05-08] MEDS ORDERED: Vancomycin 1,500 MG in D5% in Water 250 ML IVPB SCH (12:00)
[2017-05-08] MEDS: hydrALAZINE 25 MG TABLET PO SCH ×2 (13:48→20:33)
[2017-05-08] MEDS: clonazePAM 0.5 MG TABLET PO SCH ×2 (13:48→20:33)
[2017-05-08] MEDS: Vancomycin 1,500 MG in D5% in Water 250 ML IVPB SCH (13:49)
--- NOTE | 2017-05-08 14:31 | Internal Med Progress Note ---
Date of Encounter: 05/08/17 Time of Encounter: 09:45 - Assessment and plan (1) Urinary tract infection Current Visit: Yes Status: Acute Assessment and plan: Patient being treated with ceftriaxone and azithromycin was added to his regimen for possible left lower lobe pneumonia. Preliminary culture report consistent with gram-positive cocci-likely MRSA. Vancomycin added to his regimen. Likely secondary to indwelling Ya catheter. Sensitivities pending. Leukocytosis has resolved. Vital signs are stable, no signs of sepsis. (2) Altered mental status Current Visit: Yes Status: Resolved Assessment and plan: Patient appears to be consistent with his baseline. He does have expressive aphasia secondary to prior CVA however he is able to nod and shake his head in answer simple yes or no questions. Likely secondary to hypoglycemia which has since been corrected. (3) Hypoglycemia Current Visit: Yes Status: Resolved (4) Diabetes mellitus Current Visit: Yes Status: Chronic Assessment and plan: A1c earlier this year of 7.3%. His home medication list currently does not include any diabetes medications-will obtain updated copy. Hypoglycemia has resolved, will monitor closely. Qualifiers: Diabetes mellitus type: type 2 Diabetes mellitus complication status: with hypoglycemia Diabetes mellitus complication detail: without coma Diabetes mellitus termite helper insulin use: without termite helper use Qualified Code(s): E11.649 - Type 2 diabetes mellitus with hypoglycemia without coma (5) CVA, old, aphasia Current Visit: Yes Status: Chronic Assessment and plan: He is able to answer simple yes or no questions (6) CVA, old, hemiparesis Current Visit: Yes Status: Chronic (7) HTN (hypertension) Current Visit: Yes Status: Chronic Assessment and plan: Controlled, will continue to trend (8) Elevated INR (international normalized ratio) due to prior anticoagulant medication ingestion Current Visit: Yes Status: Acute Assessment and plan: No signs of active bleeding, pharmacy to dose. Likely secondary to Bactrim which can increase INR levels. We will monitor closely. No indication for reversal agent at this time. (9) Mechanical heart valve present Current Visit: Yes Status: Chronic Assessment and plan: INR supratherapeutic (10) Coronary artery disease Current Visit: Yes Status: Chronic Assessment and plan: Patient denies chest pain or shortness of breath - Subjective Interval history: Patient seen and examined. On examination, patient resting supine in bed. Patient was initially asleep and awakened easily to voice. He denies pain or concerns at this time. He is able to answer simple yes or no questions. - Constitutional Vitals: Temp Pulse Resp BP Pulse Ox 98.6 F 80 16 135/77 99 05/08/17 11:46 05/08/17 11:46 05/08/17 11:46 05/08/17 11:46 05/08/17 11:46 General appearance: Present: A&O X 3, pleasant, no acute distress, answers questions appropriately (simple yes/no questions) - Head Head exam: Present: atraumatic, normocephalic - Eye Eye exam: Present: PERRL, conjuntiva pink, sclera anicteric Pupils: Present: PERRL - Neck Neck exam general surgery: Present: supple, trachea midline. Absent: lymphadenopathy - Respiratory Respiratory exam: Present: decreased breath sounds, rhonchi (upper airway congestion). Absent: accessory muscle use, rales, respiratory distress, wheezes - Cardiovascular Cardiovascular exam: Present: RRR, +S1, +S2. Absent: diastolic murmur, gallop, rubs, systolic murmur - GI/Abdominal GI/Abdominal exam: Present: normal bowel sounds, soft, no peritoneal signs. Absent: distended, tenderness - Extremities Exam Extremities exam: Present: warm, radial pulses palpable and symetrical. Absent : calf tenderness, cyanotic, pedal edema - Neurological Exam Neurological exam: Present: alert, altered, CN II-XII intact, oriented X3, pronater drift, speech deficit. Absent: no focal deficits, strengths equal and symetr throughout, facial droop - Expanded Neurological Exam Neurological exam expanded: Present: protecting the airway Neuro motor strength exam: LUE: 5, RUE: 4, LLE: 5 Coma Scale Eye Opening: Spontaneous Coma Scale Motor Response: Obeys Commands Coma Scale Verbal Response: None (able to answer yes/no) Coma Scale Total: 11 - Skin Skin exam: Present: dry, intact, pallor, warm Internal Medicine: Result - Labs CBC & Chem 7: 05/08/17 04:40 05/08/17 04:40 Labs: Short CBC 05/08/17 Range/Units 04:40 WBC 6.7 (4.3-11.1) K/mcL Hgb 13.1 (12.9-16.9) g/dL Hct 39.7 (37.5-50.1) % Plt Count 231 (140-400) K/mcL Neutrophils # 3.7 (1.6-8.9) K/mcL BMP 05/08/17 04:40 Sodium 138 Potassium 3.5 Chloride 110 H Carbon Dioxide 21 BUN 6 L Creatinine 0.67 L Glucose 101 H Calcium 8.7 - ABG Interpretation ABG results: PT/INR, D-dimer PT 69.3 Seconds (9.4-12.1) H* 05/08/17 04:40 Consult Discharge Plan - Plan Referrals: Seven Jean MD [Primary Care Provider] -
[2017-05-08] MEDS: traZODone 50 MG TABLET PO SCH (20:32)
[2017-05-09] MEDS: Vancomycin 1,500 MG in D5% in Water 250 ML IVPB SCH ×2 (01:13→15:32)
[2017-05-09] MEDS: Azithromycin 500 MG in D5% in Water 250 ML IVPB SCH (01:18)
[2017-05-09] MEDS: Ipratropium/Albuterol Neb 3 ML IH SCH ×6 (03:52→23:23)
[2017-05-09 06:15] LABS: INR 4.3
[2017-05-09 06:18] LABS: Prothrombin Time 48.4 Seconds (9.4-12.1)
[2017-05-09 06:27] LABS: BUN/Creatinine Ratio 8 (6-26); Calcium 8.4 mg/dL (8.6-10.8); Carbon Dioxide 23 mEq/L (19-29); Chloride 110 mEq/L (98-109); Glucose 120 mg/dL (70-99); Osmolality,Calculated 288 (280-300); Potassium 3.3 mEq/L (3.5-4.5); Sodium 140 mEq/L (136-145); eGFR For African Americans > 60 (> 60); eGFR For Non-African Americans > 60 (> 60)
[2017-05-09 06:28] LABS: Blood Urea Nitrogen 5 mg/dL (8-26)
[2017-05-09] MEDS ORDERED: Ondansetron 4 MG/2 ML VIAL IVP PRN (10:50)
[2017-05-09] MEDS: hydrALAZINE 25 MG TABLET PO SCH ×2 (11:15→21:22)
[2017-05-09] MEDS: clonazePAM 0.5 MG TABLET PO SCH ×2 (11:15→21:22)
[2017-05-09] MEDS: Magnesium Oxide 400 MG TABLET PO SCH ×2 (11:16→21:22)
[2017-05-09] MEDS: D5% in 0.9% NACL 1,000 ML IVC SCH ×2 (18:50→18:52)
--- NOTE | 2017-05-09 19:36 | Internal Med Progress Note ---
Date of Encounter: 05/09/17 Time of Encounter: 12:15 - Assessment and plan (1) Acute metabolic encephalopathy Current Visit: Yes Status: Resolved Assessment and plan: Resolved. Secondary to hypoglycemia and UTI. (2) Hypoglycemia Current Visit: Yes Status: Resolved Assessment and plan: Resolved. Patient with episode of hypoglycemia at 18. Stop all hypoglycemic home medications. Close monitor. (3) Urinary tract infection Current Visit: Yes Status: Acute Assessment and plan: Complicated MRSA urinary tract infection due to indwelling catheter. Patient with Ya for the past month. [facility]. Urine culture grew MRSA. Clinically slowly improving. Continue IV vancomycin. Repeat urinalysis in the morning. Qualifiers: Urinary tract infection type: catheter-associated UTI Indwelling urinary catheter type: indwelling urethral catheter Encounter type: initial encounter Qualified Code(s): T83.511A - Infection and inflammatory reaction due to indwelling urethral catheter, initial encounter; N39.0 - Urinary tract infection , site not specified (4) Dysphagia Current Visit: Yes Status: Acute Assessment and plan: Nothing by mouth. Speech therapy. Qualifiers: Dysphagia type: oropharyngeal phase Qualified Code(s): R13.12 - Dysphagia, oropharyngeal phase (5) Elevated INR (international normalized ratio) due to prior anticoagulant medication ingestion Current Visit: Yes Status: Acute Assessment and plan: No signs of active bleeding. Holding warfarin. Likely secondary to recent Bactrim use. INR trended down to 4.3 today. (6) Mechanical heart valve present Current Visit: Yes Status: Chronic Assessment and plan: INR supratherapeutic (7) Coronary artery disease Current Visit: Yes Status: Chronic Assessment and plan: Patient denies chest pain or shortness of breath. Stable. Continue home medications. Qualifiers: Coronary Disease-Associated Artery/Lesion type: unspecified vessel or lesion type [place] vs. transplanted heart: [place] heart Associated angina: without angina Qualified Code(s): I25.10 - Atherosclerotic heart disease of [place] coronary artery without angina pectoris (8) CVA, old, aphasia Current Visit: Yes Status: Chronic (9) CVA, old, hemiparesis Current Visit: Yes Status: Chronic (10) HTN (hypertension) Current Visit: Yes Status: Chronic Assessment and plan: Controlled. Qualifiers: Hypertension type: unspecified Qualified Code(s): I10 - Essential (primary ) hypertension - Subjective Interval history: The patient is nonverbal due to a aphasia from CVA. - Constitutional Vitals: Temp Pulse Resp BP Pulse Ox 97.9 F 76 15 129/83 97 05/09/17 18:39 05/09/17 18:39 05/09/17 18:39 05/09/17 18:39 05/09/17 18:39 Exam: Patient is alert but nonverbal due to prior stroke. He is unable to answer questions. He has right-sided hemiparesis. Patient was in no distress at the beginning of my examination but then he became unease and wailed his left arm and pointed to his neck with his hand. His stated that she gave the patient a croissant 5-10 minutes before my arrival. - Eye Eye exam: Present: PERRL, sclera anicteric - Neck Neck exam general surgery: Present: supple, trachea midline. Absent: lymphadenopathy - Cardiovascular Cardiovascular exam: Present: bradycardia, RRR - GI/Abdominal GI/Abdominal exam: Present: normal bowel sounds, soft. Absent: distended, tenderness - Extremities Exam Additional comments: Right-sided swelling of his extremities due to right-sided hemiparesis. - Back Exam Back exam: Absent: CVA tenderness (L), CVA tenderness (R) - Neurological Exam Neurological exam: Present: alert, oriented X3, no focal deficits, strengths equal and symetr throughout. Absent: facial droop, speech deficit - Skin Skin exam: Absent: rash Internal Medicine: Result - Labs CBC & Chem 7: 05/08/17 04:40 05/09/17 04:51 Labs: BMP 05/09/17 04:51 Sodium 140 Potassium 3.3 L Chloride 110 H Carbon Dioxide 23 BUN 5 L Creatinine 0.64 L Glucose 120 H Calcium 8.4 L - ABG Interpretation ABG results: PT/INR, D-dimer PT 48.4 Seconds (9.4-12.1) H* 05/09/17 04:51 Consult Discharge Plan - Plan Referrals: Seven Jean MD [Primary Care Provider] -
[2017-05-09] MEDS: traZODone 50 MG TABLET PO SCH (21:22)
[2017-05-10 01:21] LABS: Basophils # 0.1 K/mcL (0.0-0.2); Basophils % 0.8 %; Eosinophils # 0.3 K/mcL (0.0-0.6); Eosinophils % 3.3 %; Hematocrit 37.8 % (37.5-50.1); Hemoglobin 12.3 g/dL (12.9-16.9); Immature Granulocytes % 0.3 % (0-4); Lymphocytes # 1.9 K/mcL (0.6-4.6); Lymphocytes % 22.2 %; Mean Corpuscular HGB Conc 32.5 g/dL (31.6-35.5); Mean Corpuscular Volume 86.1 fL (83.0-100.0); Mean Platelet Volume 9.4 fL (9.4-12.4); Monocytes # 0.5 K/mcL (0.0-1.3); Monocytes % 6.2 %; Neutrophils # 5.9 K/mcL (1.6-8.9); Platelet Count 210 K/mcL (140-400); Red Blood Count 4.39 M/mcL (4.19-5.50); Red Cell Distribution Width 14.9 % (11.5-14.5); Segmented Neutrophils % 67.2 %
[2017-05-10 01:30] LABS: INR 3.6
[2017-05-10 01:34] LABS: BUN/Creatinine Ratio 9 (6-26); Blood Urea Nitrogen 6 mg/dL (8-26); Calcium 8.6 mg/dL (8.6-10.8); Carbon Dioxide 24 mEq/L (19-29); Chloride 108 mEq/L (98-109); Glucose 126 mg/dL (70-99); Magnesium 1.4 mg/dL (1.6-2.6); Osmolality,Calculated 287 (280-300); Potassium 3.1 mEq/L (3.5-4.5); Sodium 139 mEq/L (136-145); eGFR For African Americans > 60 (> 60); eGFR For Non-African Americans > 60 (> 60)
[2017-05-10] MEDS: Ipratropium/Albuterol Neb 3 ML IH SCH ×4 (04:39→16:08)
[2017-05-10] MEDS: Vancomycin 1,250 MG in D5% in Water 250 ML IVPB SCH ×2 (06:30→17:29)
[2017-05-10] MEDS: D5% in 0.9% NACL 1,000 ML IVC SCH (06:34)
[2017-05-10] MEDS: Magnesium Oxide 400 MG TABLET PO SCH (09:42)
[2017-05-10] MEDS: hydrALAZINE 25 MG TABLET PO SCH (09:42)
[2017-05-10] MEDS: clonazePAM 0.5 MG TABLET PO SCH (09:42)
[2017-05-10] MEDS ORDERED: Magnesium Sulfate 2 GM in D5% in Water 100 ML IVPB ONE (10:28)
[2017-05-10] MEDS ORDERED: Potassium Chloride Elixir 20 MEQ/15 ML UDC PO SCH (10:30)
[2017-05-10] MEDS ORDERED: Warfarin perPT PO PRN (12:16)
[2017-05-10] MEDS: Vancomycin 1,500 MG in D5% in Water 250 ML IVPB SCH (13:48)
--- NOTE | 2017-05-10 16:10 | Discharge Summary ---
Date of Encounter: 05/10/17 Time of Encounter: 16:07 - Discharge Diagnosis (1) Acute metabolic encephalopathy Priority: Primary Status: Resolved (2) Hypoglycemia Priority: Primary Status: Resolved (3) Urinary tract infection Priority: Primary Status: Acute Qualifiers: Urinary tract infection type: catheter-associated UTI Indwelling urinary catheter type: indwelling urethral catheter Encounter type: initial encounter Qualified Code(s): T83.511A - Infection and inflammatory reaction due to indwelling urethral catheter, initial encounter; N39.0 - Urinary tract infection , site not specified (4) Dysphagia Priority: Primary Status: Resolved Qualifiers: Dysphagia type: oropharyngeal phase Qualified Code(s): R13.12 - Dysphagia, oropharyngeal phase (5) Elevated INR (international normalized ratio) due to prior anticoagulant medication ingestion Priority: Primary Status: Acute (6) Mechanical heart valve present Priority: Secondary Status: Chronic (7) Coronary artery disease Priority: Secondary Status: Chronic Qualifiers: Coronary Disease-Associated Artery/Lesion type: unspecified vessel or lesion type [place] vs. transplanted heart: [place] heart Associated angina: without angina Qualified Code(s): I25.10 - Atherosclerotic heart disease of [place] coronary artery without angina pectoris (8) CVA, old, aphasia Priority: Secondary Status: Chronic (9) CVA, old, hemiparesis Priority: Secondary Status: Chronic (10) HTN (hypertension) Priority: Secondary Status: Chronic Qualifiers: Hypertension type: unspecified Qualified Code(s): I10 - Essential (primary ) hypertension - Discharge Medications Prescriptions: Vancomycin [Vancocin (wt based)] 1,250 mg IV Q12HR 8 Days clonazePAM [Klonopin] 0.5 mg PO BID #30 Warfarin [Coumadin] 3 mg PO 1800 #20 tablet Home Medications: DULoxetine [Cymbalta] 60 mg PO DAILY 03/17/17 [History] Lovastatin 40 mg PO HS 05/07/17 [History] Metoprolol Tartrate [Lopressor] 50 mg PO BID 05/07/17 [History] Quinapril HCl [Accupril] 40 mg PO DAILY 05/07/17 [History] Trazodone HCl 150 mg PO HS 05/07/17 [History] hydrALAZINE [HydrALAZINE] 50 mg PO BID 05/07/17 [History] Albuterol Neb [Proventil Neb] 2.5 mg IH Q2H PRN inh 05/10/17 [Rx] GuaiFENesin ER [Mucinex] 600 mg PO BID 05/10/17 [Rx] Ipratropium/Albuterol Neb [Duoneb] 3 ml IH Q4HR #0 05/10/17 [Rx] Magnesium Oxide [Mag-Ox] 400 mg PO BID tab 05/10/17 [Rx] Vancomycin [Vancocin (wt based)] 1,250 mg IV Q12HR 8 Days 05/10/17 [Rx] Warfarin [Coumadin] 3 mg PO 1800 #20 tablet 05/10/17 [Rx] clonazePAM [Klonopin] 0.5 mg PO BID #30 05/10/17 [Rx] Allergies/Adverse Reactions: Allergies Amoxicillin [From Trimox] Allergy (Verified 03/26/17 11:34) See Comments Penicillins Allergy (Verified 03/26/17 11:34) See Comments Date of admission: 05/07/17 11:27 Primary care physician: Seven Jean MD Consults: 05/09/17 10:57 Consult to Invasive Line Access Team [CONS] Routine Reason for Consult: powerglide insertion Line Type: EPIV 05/09/17 11:05 Consult to Speech Therapy [CONS] Routine Comment: Evaluate, develop and implement POC Reason for Consult: cough after eating croissant this morning. he did well with soft diet. Call Completed: No - Patient Status Disposition: Transfer SNF Condition: Good Functional capacity at discharge: bed bound Overall status at discharge: patient is progressing back to baseline - Discharge Instructions Follow Up With: Seven Jean MD [Primary Care Provider] - - Diet and Activity Activity: resume usual activities as tolerated Diet: diabetic diet (mechanically altered textures. nectar thickened diet. ), low fat, low cholesterol, low salt diet Interval History: patient has no complaints. he feels better this morning. Hospital course: Mr. Carrasco is a 62 year old male with past medical history of diabetes, prior hemorrhagic and ischemic stroke with received a right-sided hemiparesis and aphasia, CAD status post CABG, mechanical heart valve on Coumadin, copd and hypertension who is a halfway resident and was brought to our ED after he was confused with a glucose of 18. Patient received 1 amp D50 and was started on dextrose drip as well as empiric antibiotics for a suspected urinary tract infection. His mental status went back to baseline and his IV fluids discontinued. His glucose levels remained adequate. Urine culture grew MRSA. He was switched to IV vancomycin. He had an episode of choking after his feed him a croissant from home. Speech therapy recommended mechanical altered diet with nectar thickened liquids. He did tolerate his diet well. His INR on admission was supratherapeutic in the 5.2 and went down to 3.6 the day of discharge. His Coumadin was held but resumed the day of discharge at 3 mg qpm. PLAN: IV vancomycin for a total of 10 days. Daily INR. vancomycin level in 3 days. f/u in the urology clinic in 2 weeks. - Time Spent with Patient Total time spent providing and/or coordinating discharge services: - Constitutional Vitals: Temp Pulse Resp BP Pulse Ox 97.9 F 68 16 104/58 97 05/10/17 15:09 05/10/17 15:09 05/10/17 15:09 05/10/17 15:09 05/10/17 15:09 General appearance: Present: cooperative, A&O X 3, pleasant, no acute distress, answers questions appropriately (simple yes/no questions) - Respiratory Respiratory exam: Present: CTAB - Cardiovascular Cardiovascular exam: Present: RRR Additional comments: click sound - GI/Abdominal GI/Abdominal exam: Present: normal bowel sounds, soft. Absent: distended, tenderness - Extremities Exam Extremities exam: Present: pedal edema - Back Exam Back exam: Absent: CVA tenderness (L), CVA tenderness (R) - Neurological Exam Neurological exam: Present: alert Additional comments: right-sided hemiparesis with dependent edema - VTE Documentation of Mechanical Device: Graduated compression elastic hosiery
--- NOTE | 2017-05-10 16:38 | Physician Discharge Referral ---
ExtendedCare Referral Info Transfer To: [facility] Provider in Charge: darrel Provider in Charge after Transfer: PCP Institutional Level of Care: Skilled - Diagnosis (1) Acute metabolic encephalopathy Status: Resolved (2) Hypoglycemia Status: Resolved (3) Urinary tract infection Status: Acute (4) Dysphagia Status: Resolved (5) Elevated INR (international normalized ratio) due to prior anticoagulant medication ingestion Status: Acute (6) Mechanical heart valve present Status: Chronic (7) Coronary artery disease Status: Chronic (8) CVA, old, aphasia Status: Chronic (9) CVA, old, hemiparesis Status: Chronic (10) HTN (hypertension) Status: Chronic - Transfer Medications Prescriptions: Vancomycin [Vancocin (wt based)] 1,250 mg IV Q12HR 8 Days clonazePAM [Klonopin] 0.5 mg PO BID #30 Warfarin [Coumadin] 3 mg PO 1800 #20 tablet Home Medications: DULoxetine [Cymbalta] 60 mg PO DAILY 03/17/17 [History] Lovastatin 40 mg PO HS 05/07/17 [History] Metoprolol Tartrate [Lopressor] 50 mg PO BID 05/07/17 [History] Quinapril HCl [Accupril] 40 mg PO DAILY 05/07/17 [History] Trazodone HCl 150 mg PO HS 05/07/17 [History] hydrALAZINE [HydrALAZINE] 50 mg PO BID 05/07/17 [History] Albuterol Neb [Proventil Neb] 2.5 mg IH Q2H PRN inh 05/10/17 [Rx] GuaiFENesin ER [Mucinex] 600 mg PO BID 05/10/17 [Rx] Ipratropium/Albuterol Neb [Duoneb] 3 ml IH Q4HR #0 05/10/17 [Rx] Magnesium Oxide [Mag-Ox] 400 mg PO BID tab 05/10/17 [Rx] Vancomycin [Vancocin (wt based)] 1,250 mg IV Q12HR 8 Days 05/10/17 [Rx] Warfarin [Coumadin] 3 mg PO 1800 #20 tablet 05/10/17 [Rx] clonazePAM [Klonopin] 0.5 mg PO BID #30 05/10/17 [Rx] Allergies/Adverse Reactions: Allergies Amoxicillin [From Trimox] Allergy (Verified 03/26/17 11:34) See Comments Penicillins Allergy (Verified 03/26/17 11:34) See Comments - Respiratory Orders Smoking Cessation: Smoking cessation has been advised. For more information, call the [place] Tobacco Quit Line at 1-560-EIEO-NOW. - Lab Orders Lab Orders: Other (include drug levels w/frequency) (daily inr. vancomycin level on sunday) - Advance Directives Code Status: Full Code - Mobility Orders Bedrest - Rehabiliation Orders Rehab Potential: Fair Rehab Orders: Evaluation for Physical Therapy, Evaluation for Occupational Therapy - Treatments Skin tear care topically daily PRN per policy, May check for fecal impaction rectally daily PRN, Fleet enema rectally every other day PRN cleansing purposes - Diet Orders No Concentrated Sweets (mechanically altered textures. nectar thickened diet. cardiac, low salt and diabetic diet) CERTIFICATION: I certify that the transfer of the above named patient to an Extended Care Facility is necessary for the continuing treatment of the diagnosis listed. The above information is true and accurate reflection of patient's current condition. Confidential - Redisclosure prohibited without a patient's written consent.
[2017-05-10 17:49] VITALS: BP 133/71
[2017-05-10] MEDS ORDERED: *HR* Warfarin 3 MG TABLET PO ONE (18:00)
[2017-05-10] MEDS ORDERED: Aminoglycoside Consult 1 EACH MC ONE (19:18)
== END 2017-05-10 19:19 | DRG 637 ==
LOC: EMEROO 22:16 → 3BNU 22:16 → SUATTDRO 05-07 11:27
PROVIDERS: ADMIT Internal Medicine Endocrinology, Diabetes & Metabolism; ATTEND Internal Medicine

== ENCOUNTER 2017-08-07 13:00 | Inpatient (IN) ==
[2017-08-07] MEDS ORDERED: 0.9 % Sodium Chloride 1,000 ML ONE ×2 (13:10→21:20)
[2017-08-07] MEDS ORDERED: Azithromycin 500 MG in D5% in Water 250 ML IVPB ONE (13:14)
[2017-08-07 13:34] LABS: Basophils % 0.3 %; Eosinophils # 0.1 K/mcL (0.0-0.6); Eosinophils % 0.5 %; Hematocrit 40.6 % (37.5-50.1); Hemoglobin 13.6 g/dL (12.9-16.9); Immature Granulocytes % 0.5 % (0-4); Lymphocytes # 1.4 K/mcL (0.6-4.6); Mean Corpuscular HGB Conc 33.5 g/dL (31.6-35.5); Mean Corpuscular Hemoglobin 28.5 pg (28.0-33.3); Mean Corpuscular Volume 84.9 fL (83.0-100.0); Mean Platelet Volume 9.8 fL (9.4-12.4); Monocytes # 0.5 K/mcL (0.0-1.3); Monocytes % 4.9 %; Neutrophils # 8.6 K/mcL (1.6-8.9); Platelet Count 254 K/mcL (140-400); Red Blood Count 4.78 M/mcL (4.19-5.50); Red Cell Distribution Width 14.5 % (11.5-14.5); Segmented Neutrophils % 80.8 %
[2017-08-07] MEDS: 0.9 % Sodium Chloride 1,000 ML IVC SCH ×3 (13:36→21:41)
[2017-08-07 13:42] LABS: Activated Partial Thrombo Time 58.5 Seconds (26.0-36.0)
[2017-08-07 13:47] LABS: Prothrombin Time 59.4 Seconds (9.4-12.1)
[2017-08-07 13:48] LABS: INR 5.3
[2017-08-07] MEDS ORDERED: Hydrocortisone Sodium Succ 100 MG/2 ML VIAL IVP ONE (13:56)
[2017-08-07 14:23] LABS: Bilirubin,Urine Small (Negative); Blood,Urine Large (Negative); Clarity,Urine Turbid (Clear); Color,Urine Dark Yellow (Yellow); Glucose,Urine (UA) Normal (Normal); Ketones,Urine Negative (Negative); Leukocyte Esterase,Urine Large (Negative); Nitrite,Urine Positive (Negative); PH,Urine 6.5 pH Units (5.0-8.0); Protein,Urine 30 mg/dL (Neg-Trace); Specific Gravity,Urine 1.015 (1.010-1.025); Urobilinogen,Urine Normal (Normal)
[2017-08-07 14:25] LABS: Bacteria,Urine Many per hpf (None-Few); Squamous Epithelial Cell,Urine Many per lpf (None-Few); WBC,Urine TNTC per hpf (0-3)
[2017-08-07 14:37] LABS: RBC,Urine TNTC per hpf (0-3)
[2017-08-07 15:45] LABS: Alanine Aminotransferase 12 Units/L (0-55); Albumin 2.5 g/dL (3.5-5.0); Albumin/Globulin Ratio 0.6 (1.1-2.2); Alkaline Phosphatase 144 Units/L (38-126); Aspartate Amino Transferase 17 Units/L (5-34); BUN/Creatinine Ratio 16 (6-26); Bilirubin,Direct 0.6 mg/dL (0.0-0.5); Bilirubin,Indirect 0.4 mg/dL (0.0-1.2); Blood Urea Nitrogen 13 mg/dL (8-26); Calcium 9.7 mg/dL (8.6-10.8); Carbon Dioxide 20 mEq/L (19-29); Chloride 105 mEq/L (98-109); Glucose 82 mg/dL (70-99); Lipase 18 Units/L (8-78); Magnesium 1.8 mg/dL (1.6-2.6); Osmolality,Calculated 279 (280-300); Phosphorous 3.5 mg/dL (2.3-4.7); Potassium 4.2 mEq/L (3.5-4.5); Sodium 135 mEq/L (136-145); Total Protein 6.5 g/dL (6.0-8.3); eGFR For African Americans > 60 (> 60); eGFR For Non-African Americans > 60 (> 60)
--- NOTE | 2017-08-07 16:35 | Emergency Department Note ---
Disposition Clinical Impression: Malaise and fatigue Urinary tract infection Qualifiers: Urinary tract infection type: catheter-associated UTI Indwelling urinary catheter type: indwelling urethral catheter Encounter type: initial encounter Qualified Code(s): T83.511A - Infection and inflammatory reaction due to indwelling urethral catheter, initial encounter; N39.0 - Urinary tract infection , site not specified; N39.0 - Urinary tract infection, site not specified Pneumonia Qualifiers: Pneumonia type: due to unspecified organism Laterality: bilateral Lung location : unspecified part of lung Qualified Code(s): J18.9 - Pneumonia, unspecified organism Hemiparesis of right dominant side Qualifiers: Hemiparesis etiology: cerebrovascular etiology Cerebrovascular disease type: unspecified Qualified Code(s): I67.9 - Cerebrovascular disease, unspecified; G81.91 - Hemiplegia, unspecified affecting right dominant side; G81.91 - Hemiplegia, unspecified affecting right dominant side; G81.91 - Hemiplegia, unspecified affecting right dominant side Disposition: Admitted As Inpatient Condition: Fair Referrals: Seven Jean MD [Primary Care Provider] - Time of Disposition: 17:07 General Adult HPI - General Chief complaint: ED Upper Respiratory Infection Stated complaint: cough Time Seen by Provider: 08/07/17 13:02 Source: EMS Mode of arrival: EMS Limitations: no limitations Nursing Notes Reviewed: Yes Vital Signs Reviewed: Yes - History of Present Illness HPI Narrative: Patient presents emergency room with persistent cough from home. Patient is chronically disabled secondary to seizures and stroke issues. Patient has not been complaining of fevers or chills chest pain shortness breath headache vision changes nausea vomiting or diarrhea. Main complaint is a persistent cough and productive sputum. Onset (ago): day(s) Radiation: non-radiation Pain Scale: 0 Consistency: constant Improves with: nothing Associated symptoms: Reports: cough, fever/chills, loss of appetite, malaise Treatments Prior to Arrival: none - Related Data Home Medications Medication Instructions Recorded Confirmed Lovastatin 40 mg PO HS 05/07/17 08/07/17 Magnesium Oxide [Mag-Ox] 400 mg PO DAILY 08/07/17 08/07/17 Potassium Chloride [K-Tab ER] 20 meq PO DAILY 08/07/17 08/07/17 Sennosides/Docusate Sodium 1 each PO DAILY 10/10/17 10/10/17 [Senna-Docusate Sodium Tablet] Warfarin Sodium [Warfarin Sodium] 2.5 mg PO DAILY 08/07/17 08/07/17 Previous Rx's Medication Instructions Recorded Albuterol Neb [Proventil Neb] 2.5 mg IH Q2H PRN inh 05/10/17 Allergies Allergy/AdvReac Type Severity Reaction Status Date / Time Amoxicillin [From Trimox] Allergy See Verified 03/26/17 11:34 Comments Penicillins Allergy See Verified 03/26/17 11:34 Comments heparin AdvReac See Verified 08/07/17 15:28 Comments All systems ED: reviewed and negative except as stated. Review of Systems: As Per HPI Constitutional: Denies: fever, chills, weakness Cardiovascular: Denies: chest pain, palpitations, dyspnea on exertion, orthopnea Respiratory: Reports: cough. Denies: dyspnea, wheezes Gastrointestinal: Reports: abdominal pain, constipation. Denies: nausea, vomiting, diarrhea Genitourinary: Reports: dysuria, frequency. Denies: urgency, hematuria, discharge Musculoskeletal: Denies: back pain, neck pain Neurological: Denies: headache Past Medical History - Past Medical History Attestation: Yes The following information was validated with the patient. Source: patient Medical history: Reports: CHF, COPD, CVA, diabetes, hyperlipidemia, hypertension , myocardial infarction, valvular heart disease, other Surgical history: Reports: appendectomy, coronary bypass (CABG), other Psychiatric history: Reports: depression - Social History Smoking Status: Former smoker Smokeless Tobacco Status: No Alcohol use: Reports: none Drug use: Reports: none Physical Exam - General Limitations: no limitations General appearance: alert, in no apparent distress - Head Head exam: atraumatic, normocephalic, normal inspection - ENT ENT exam: normal exam, normal oropharynx, mucous membranes moist - Neck Neck exam: Present: normal inspection, full ROM, trachea midline - Chest Chest inspection: Present: normal inspection, symmetric chest wall rise. Absent : tenderness - Respiratory Respiratory exam: Present: normal lung sounds bilaterally. Absent: respiratory distress, wheezes - Cardiovascular Cardiovascular exam: Present: regular rate, normal rhythm, normal heart sounds - Abdominal Exam Abdominal exam: Present: soft, tenderness, normal bowel sounds. Absent: distention, guarding, rebound, rigidity - Extremities Exam Extremities exam: Present: normal inspection, full ROM. Absent: tenderness, pedal edema - Back Exam Back exam: Present: normal inspection, full ROM. Absent: tenderness - Neurological Exam Neurological exam: Present: alert, oriented X3 - Skin Skin exam: Present: warm, dry, intact, normal color Course Course Narrative: Patient seen and examined at the time of arrival. See history of present illness. 62-year-old male presents from home today for evaluation of 5 days of persistent cough. Patient is chronically good disabled secondary to 2 previous strokes. He has right-sided hemiparesis. Patient does have productive sputum over the last several days. Denies chest pain shortness of breath fevers chills nausea vomiting or diarrhea. Denies any headache or vision change. Patient has had productive cough with intermittent chills at home. was concerned and brought him in for evaluation. Physical exam shows a frail cachectic appearing male that does have dry mucous membranes. He has right- sided hemiparesis that is stable at baseline. Head is atraumatic otherwise. Pupils are equal and reactive. Trachea is midline. Patient has coarse breath sounds bilaterally as well as in the upper airway. Abdomen is soft. Heart is regular borderline tachycardic. Abdomen is difficult to appreciate any significant rigidity or peritoneal symptoms secondary the patient having decreased sensation throughout most of the exam. Patient has no visible signs of trauma or injury. Vital signs reviewed patient is concerning for sepsis based on hypotension and tachycardia. Her boluses to be given here. Prostatomegaly box to be started this time for pulmonary-related source based on presenting symptoms. Azithromycin and Rocephin started. Lactic acid blood cultures CT of the head chest x-ray and CT of the abdomen to be complete at this time. Disposition will be determined once his workup is completed. Patient be stabilized. IV access to be obtained post (. Family informed most likely need admission for definitive evaluation cannot rule this plan. She is currently on Coumadin. We will continue to monitor his treatment course is completed - Reevaluation(s) Reevaluation #1: Patient found to have significantly elevated INR as well as bilateral pneumonia and urinary tract infection. This is most likely the source to his presentation infectious etiology. Fluid resuscitation has stabilized the patient's blood pressure this time. Heart rate and blood pressure normalized. Patient does not have a significant white blood cell count at this time. Blood cultures collected antibiotic started including azithromycin and Rocephin which will cover the pneumonia as well as urinary tract infection. Patient will be admitted at this time for definitive evaluation of what appears to be sepsis secondary to pneumonia and UTI. H&H IV access at this point and is mentating back at baseline. CT imaging of the head as well as abdomen are otherwise unremarkable. Patient does have constipation but no other acute pathology. Chest x-ray is confirmatory for the pneumonia. Hospitalists patient this time. Admission process. Patient family informed and they are both comfortable with this plan Time: 15:35 Reevaluation #2: Patient discussed with the hospitalist Nathaniel ovalles. Detailed review the presentation symptoms medical intervention and patient presentation were discussed and reviewed. He had no other recommendations or concerns at this time. Patient is otherwise stable. Admission process to be completed at this time Time: 17:00 Vital Signs Temperature 99 F 08/07/17 13:02 Pulse Rate 108 08/07/17 13:02 Respiratory Rate 20 08/07/17 13:02 Blood Pressure 92/71 08/07/17 13:02 O2 Sat by Pulse Oximetry 88 08/07/17 13:02 Temperature 99 F 08/07/17 13:02 Pulse Rate 76 08/07/17 16:00 Respiratory Rate 20 08/07/17 16:00 Blood Pressure 122/83 08/07/17 16:00 O2 Sat by Pulse Oximetry 99 08/07/17 16:00 Oxygen Delivery Oxygen Delivery Nasal Cannula Medical Decision Making - MDM Narrative Medical decision making narrative: Urinary tract infection, pneumonia, sepsis, dehydration - Medical Records Medical records reviewed: Yes I reviewed the patient's medical records. - Lab Data Lab results reviewed: Yes I reviewed the patient's lab results. Result diagrams: 08/07/17 13:15 08/07/17 13:15 Lab Results 08/07/17 08/07/17 08/07/17 Range/Units 13:15 13:15 13:15 WBC 10.6 (4.3-11.1) K/mcL RBC 4.78 (4.19-5.50) M/mcL Hgb 13.6 (12.9-16.9) g/dL Hct 40.6 (37.5-50.1) % MCV 84.9 (83.0-100.0) fL MCH 28.5 (28.0-33.3) pg MCHC 33.5 (31.6-35.5) g/dL RDW 14.5 (11.5-14.5) % Plt Count 254 (140-400) K/mcL MPV 9.8 (9.4-12.4) fL Immature Gran % 0.5 (0-4) % Seg Neutrophils % 80.8 % Lymphocytes % 13.0 % Monocytes % 4.9 % Eosinophils % 0.5 % Basophils % 0.3 % Neutrophils # 8.6 (1.6-8.9) K/mcL Lymphocytes # 1.4 (0.6-4.6) K/mcL Monocytes # 0.5 (0.0-1.3) K/mcL Eosinophils # 0.1 (0.0-0.6) K/mcL Basophils # 0.0 (0.0-0.2) K/mcL PT 59.4 H* (9.4-12.1) Seconds INR 5.3 H* APTT 58.5 H (26.0-36.0) Seconds Sodium 135 L (136-145) mEq/L Potassium 4.2 (3.5-4.5) mEq/L Chloride 105 (98-109) mEq/L Carbon Dioxide 20 (19-29) mEq/L BUN 13 (8-26) mg/dL Creatinine 0.79 (0.72-1.25) mg/dL Est GFR ( Amer) > 60 (> 60) Est GFR (Non-Af Amer) > 60 (> 60) BUN/Creatinine Ratio 16 (6-26) Glucose 82 (70-99) mg/dL Calculated Osmolality 279 L (280-300) Lactic Acid (0.5-2.2) mmol/L Calcium 9.7 (8.6-10.8) mg/dL Phosphorus 3.5 (2.3-4.7) mg/dL Magnesium 1.8 (1.6-2.6) mg/dL Total Bilirubin 1.0 (0.2-1.2) mg/dL Direct Bilirubin 0.6 H (0.0-0.5) mg/dL Indirect Bilirubin 0.4 (0.0-1.2) mg/dL AST 17 (5-34) Units/L ALT 12 (0-55) Units/L Alkaline Phosphatase 144 H (38-126) Units/L Troponin I (0-0.03) ng/mL B-Natriuretic Peptide (0-100) pg/mL Serum Total Protein 6.5 (6.0-8.3) g/dL Albumin 2.5 L (3.5-5.0) g/dL Globulin 4.0 H (2.4-3.5) g/dL Albumin/Globulin Ratio 0.6 L (1.1-2.2) Lipase 18 (8-78) Units/L Urine Color (Yellow) Urine Clarity (Clear) Urine pH (5.0-8.0) pH Units Ur Specific [place] (1.010-1.025) Urine Protein (Neg-Trace) mg/dL Urine Glucose (UA) (Normal) mg/dL Urine Ketones (Negative) mg/dL Urine Blood (Negative) Urine Nitrite (Negative) Urine Bilirubin (Negative) Urine Urobilinogen (Normal) mg/dL Ur Leukocyte Esterase (Negative) Urine Microscopic RBC (0-3) per hpf Urine Microscopic WBC (0-3) per hpf Ur Squamous Epith Cells (None-Few) per lpf Urine Bacteria (None-Few) per hpf Ur Culture Indicated? (NO) 08/07/17 08/07/17 08/07/17 Range/Units 13:15 13:15 13:15 WBC (4.3-11.1) K/mcL RBC (4.19-5.50) M/mcL Hgb (12.9-16.9) g/dL Hct (37.5-50.1) % MCV (83.0-100.0) fL MCH (28.0-33.3) pg MCHC (31.6-35.5) g/dL RDW (11.5-14.5) % Plt Count (140-400) K/mcL MPV (9.4-12.4) fL Immature Gran % (0-4) % Seg Neutrophils % % Lymphocytes % % Monocytes % % Eosinophils % % Basophils % % Neutrophils # (1.6-8.9) K/mcL Lymphocytes # (0.6-4.6) K/mcL Monocytes # (0.0-1.3) K/mcL Eosinophils # (0.0-0.6) K/mcL Basophils # (0.0-0.2) K/mcL PT (9.4-12.1) Seconds INR APTT (26.0-36.0) Seconds Sodium (136-145) mEq/L Potassium (3.5-4.5) mEq/L Chloride (98-109) mEq/L Carbon Dioxide (19-29) mEq/L BUN (8-26) mg/dL Creatinine (0.72-1.25) mg/dL Est GFR ( Amer) (> 60) Est GFR (Non-Af Amer) (> 60) BUN/Creatinine Ratio (6-26) Glucose (70-99) mg/dL Calculated Osmolality (280-300) Lactic Acid 1.2 (0.5-2.2) mmol/L Calcium (8.6-10.8) mg/dL Phosphorus (2.3-4.7) mg/dL Magnesium (1.6-2.6) mg/dL Total Bilirubin (0.2-1.2) mg/dL Direct Bilirubin (0.0-0.5) mg/dL Indirect Bilirubin (0.0-1.2) mg/dL AST (5-34) Units/L ALT (0-55) Units/L Alkaline Phosphatase (38-126) Units/L Troponin I 0.02 (0-0.03) ng/mL B-Natriuretic Peptide 235 H (0-100) pg/mL Serum Total Protein (6.0-8.3) g/dL Albumin (3.5-5.0) g/dL Globulin (2.4-3.5) g/dL Albumin/Globulin Ratio (1.1-2.2) Lipase (8-78) Units/L Urine Color (Yellow) Urine Clarity (Clear) Urine pH (5.0-8.0) pH Units Ur Specific [place] (1.010-1.025) Urine Protein (Neg-Trace) mg/dL Urine Glucose (UA) (Normal) mg/dL Urine Ketones (Negative) mg/dL Urine Blood (Negative) Urine Nitrite (Negative) Urine Bilirubin (Negative) Urine Urobilinogen (Normal) mg/dL Ur Leukocyte Esterase (Negative) Urine Microscopic RBC (0-3) per hpf Urine Microscopic WBC (0-3) per hpf Ur Squamous Epith Cells (None-Few) per lpf Urine Bacteria (None-Few) per hpf Ur Culture Indicated? (NO) 08/07/17 Range/Units 14:13 WBC (4.3-11.1) K/mcL RBC (4.19-5.50) M/mcL Hgb (12.9-16.9) g/dL Hct (37.5-50.1) % MCV (83.0-100.0) fL MCH (28.0-33.3) pg MCHC (31.6-35.5) g/dL RDW (11.5-14.5) % Plt Count (140-400) K/mcL MPV (9.4-12.4) fL Immature Gran % (0-4) % Seg Neutrophils % % Lymphocytes % % Monocytes % % Eosinophils % % Basophils % % Neutrophils # (1.6-8.9) K/mcL Lymphocytes # (0.6-4.6) K/mcL Monocytes # (0.0-1.3) K/mcL Eosinophils # (0.0-0.6) K/mcL Basophils # (0.0-0.2) K/mcL PT (9.4-12.1) Seconds INR APTT (26.0-36.0) Seconds Sodium (136-145) mEq/L Potassium (3.5-4.5) mEq/L Chloride (98-109) mEq/L Carbon Dioxide (19-29) mEq/L BUN (8-26) mg/dL Creatinine (0.72-1.25) mg/dL Est GFR ( Amer) (> 60) Est GFR (Non-Af Amer) (> 60) BUN/Creatinine Ratio (6-26) Glucose (70-99) mg/dL Calculated Osmolality (280-300) Lactic Acid (0.5-2.2) mmol/L Calcium (8.6-10.8) mg/dL Phosphorus (2.3-4.7) mg/dL Magnesium (1.6-2.6) mg/dL Total Bilirubin (0.2-1.2) mg/dL Direct Bilirubin (0.0-0.5) mg/dL Indirect Bilirubin (0.0-1.2) mg/dL AST (5-34) Units/L ALT (0-55) Units/L Alkaline Phosphatase (38-126) Units/L Troponin I (0-0.03) ng/mL B-Natriuretic Peptide (0-100) pg/mL Serum Total Protein (6.0-8.3) g/dL Albumin (3.5-5.0) g/dL Globulin (2.4-3.5) g/dL Albumin/Globulin Ratio (1.1-2.2) Lipase (8-78) Units/L Urine Color Dark Yellow (Yellow) Urine Clarity Turbid A (Clear) Urine pH 6.5 (5.0-8.0) pH Units Ur Specific [place] 1.015 (1.010-1.025) Urine Protein 30 H (Neg-Trace) mg/dL Urine Glucose (UA) Normal (Normal) mg/dL Urine Ketones Negative (Negative) mg/dL Urine Blood Large H (Negative) Urine Nitrite Positive A (Negative) Urine Bilirubin Small H (Negative) Urine Urobilinogen Normal (Normal) mg/dL Ur Leukocyte Esterase Large H (Negative) Urine Microscopic RBC TNTC H (0-3) per hpf Urine Microscopic WBC TNTC H (0-3) per hpf Ur Squamous Epith Cells Many H (None-Few) per lpf Urine Bacteria Many H (None-Few) per hpf Ur Culture Indicated? YES A (NO) - Radiology Data CT of the head is negative for acute intracranial pathology. CT of the abdomen does not show any acute pathology except for constipation. Chest x-ray shows bilateral pneumonia - EKG Data EKG #1 EKG attestation: Yes I reviewed and interpreted this EKG. EKG results narrative: H and has sinus tachycardia based on presentation. EKG morphology appears to be stable in comparison to an EKG collected on 05/06/17. Chronic inverted T waves noted in the lateral precordial leads that appear to be resolving comparison to old. No acute signs of ST segment elevation or abnormality based on my interpretation of the EKG. Ventricular rate is 111. MT interval appears to be less than 200 ms. QRS duration appears to be 125. QTC is 409 EKG shows normal: sinus rhythm Critical Care Time Critical Care Time: Yes Total Critical Care Time: 45 Attestation: Critical care performed: Time is exclusive of separately billable procedures. Time includes: direct patient care, patient reassessment, coordination of patient care, interpretation of data (laboratory data, radiology data, and respiratory data), review of patient's medical records, medical consultation and documentation of patient care. Procedures included in critical care time: Procedures excluded from critical care time:
--- NOTE | 2017-08-07 19:35 | Internal Med History&Physical ---
Date of Encounter: 08/07/17 Time of Encounter: 19:35 Assessment and Plan (1) Pneumonia Current visit: Yes Status: Acute CXR reveals right infrahilar lung consolidation and medial left basilar patchy consolidation. CT abd/plv reveals bilateral lower lobe airspace disease possibly representing pneumonia or aspiration Prior h/o MRSA PNA, last hospitalization 05/07/17 Patient allergic to PCN Broad spectum antibiotics: Vanc, Aztreonam, and Levaquin Blood and sputum cultures pending Possible aspiration PNA give prior CVA and trach surgery reports previous barium swallow was negative for aspiration. NPO Speech therapy consulted Qualifiers: Pneumonia type: due to unspecified organism Laterality: bilateral Lung location: unspecified part of lung Qualified Code(s): J18.9 - Pneumonia, unspecified organism (2) Acute exacerbation of chronic obstructive pulmonary disease (COPD) Current visit: Yes Status: Acute Continue Duonebs, steroids, and antibiotics Prior h/o tracheostomy (3) Urinary tract infection Current visit: Yes Status: Acute Grossly positive UTI Prior MRSA UTI Contact precautions Urine culture pending Qualifiers: Urinary tract infection type: catheter-associated UTI Indwelling urinary catheter type: indwelling urethral catheter Encounter type: initial encounter Qualified Code(s): T83.511A - Infection and inflammatory reaction due to indwelling urethral catheter, initial encounter; N39.0 - Urinary tract infection , site not specified; N39.0 - Urinary tract infection, site not specified (4) Osteomyelitis Current visit: Yes Status: Suspected ESR 106, CRP 218 Possible right leg osteomyelitis due to necrotic decubitus ulcer CT right lower extremity pending to r/o osteomyelitis Wound care consulted Consider surgery consult for debridement Turn patient q2h and elevate extremity Qualifiers: Osteomyelitis type: unspecified type Osteomyelitis location: foot Laterality: right Qualified Code(s): M86.9 - Osteomyelitis, unspecified (5) Severe protein-calorie malnutrition Current visit: Yes Status: Acute Weight loss, poor appetite, 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, temporal wasting, loss of subcutaneous fat, loss of muscle mass reports patient drinks Ensure at home Albumin 2.1 Await speech therapy eval, then start dietary supplementation Nutrition consulted (6) 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 Continue to monitor/ trend INR (8) Mechanical heart valve present Current visit: No Status: Chronic Remote h/o Rheumatic fever and bicuspid aortic valve Hold warfarin due to supratherapeutic INR (9) Coronary artery disease Current visit: No Status: Chronic Continue home meds Qualifiers: Coronary Disease-Associated Artery/Lesion type: unspecified vessel or lesion type [place] vs. transplanted heart: [place] heart Associated angina: without angina Qualified Code(s): I25.10 - Atherosclerotic heart disease of [place] coronary artery without angina pectoris (10) HTN (hypertension) Current visit: No Status: Chronic Continue to monitor Qualifiers: Hypertension type: unspecified Qualified Code(s): I10 - Essential (primary ) hypertension (11) Diabetes mellitus Current visit: No Status: Chronic HGB a1c pending Continue accucheck and low dose SSI Qualifiers: Diabetes mellitus type: type 2 Diabetes mellitus complication status: with skin complications Diabetes mellitus complication detail: with foot ulcer 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 use: without chcf use Qualified Code( s): E11.621 - Type 2 diabetes mellitus with foot ulcer; L97.509 - Non-pressure chronic ulcer of other part of unspecified foot with unspecified severity; L97.509 - Non-pressure chronic ulcer of other part of unspecified foot with unspecified severity; L97.509 - Non-pressure chronic ulcer of other part of unspecified foot with unspecified severity; L97.509 - Non-pressure chronic ulcer of other part of unspecified foot with unspecified severity (12) Decubitus ulcer of sacral region, stage 1 Current visit: Yes Status: Acute Turn patient q2h Dressing changes Wound care consulted (13) Intracranial shunt Current visit: Yes Status: Chronic S/p CVA in December 2016 CT brain reveals trans right frontal ventriculostomy catheter terminates within the left frontal horn. The ventricles are dilated without features to suggest acute hydrocephalus. (14) DVT prophylaxis Current visit: Yes Status: Acute SCDs Internal Medicine - H&P: HPI Chief complaint: SOB Admitted From: Home History of present illness: Mr. Carrasco is a 62 year old bed bound male under the care of home hospice with a PMH of DM type 2, COPD, CVA with residual aphagia and right-sided paralysis, prior tracheostomy, and prosthetic aortic valve placement that presents c/o weakness, SOB, productive cough, and right hand pain unrelieved by Tramadol for the past 5 days. He reports yellow sputum production and prior MRSA in the lungs. Of note, patient's is at bedside and reports she had strep throat last week. Patient also has decreased appetite, weight loss, and black ulcer on his right heel. Patient denies fever, chills, CP, aspiration, N/V /D/C, dusuria, or leg edema. reports previous barium swallow was negative for aspiration. Past Med Surg Social Fam HX - Past Medical History Medical history: CHF, COPD, CVA, diabetes, hyperlipidemia, hypertension, myocardial infarction, valvular heart disease, other Psychiatric history: depression - Past Surgical History Surgical History: appendectomy, coronary bypass (CABG), vascular surgery, other (Mechanical aortic valve, right frontal ventriculostomy shunt) - Social History Smoking Status: Former smoker Smokeless Tobacco Status: No Alcohol use: none Drug use: none Occupational status: disabled Current living situation: Home, With Family - Family History Mother Living Status: Hx Family Cardiac Disorders: Yes Hx Family Endocrine Disorder: Yes (DM) Father Living Status: Hx Family Cardiac Disorders: Yes Hx Family Endocrine Disorder: Yes (DM) Internal Medicine - H&P: Meds Lovastatin 40 mg PO HS 05/07/17 [History] Albuterol Neb [Proventil Neb] 2.5 mg IH Q2H PRN inh 05/10/17 [Rx] Magnesium Oxide [Mag-Ox] 400 mg PO DAILY 08/07/17 [History] Potassium Chloride [K-Tab ER] 20 meq PO DAILY 08/07/17 [History] Sennosides/Docusate Sodium [Senna-Docusate Sodium Tablet] 1 each PO DAILY [History] Warfarin Sodium [Warfarin Sodium] 2.5 mg PO DAILY 08/07/17 [History] 3 Allergy/AdvReac Type Severity Reaction Status Date / Time Amoxicillin [From Trimox] Allergy See Verified 03/26/17 11:34 Comments Penicillins Allergy See Verified 03/26/17 11:34 Comments heparin AdvReac See Verified 08/07/17 15:28 Comments All Systems PM: A 10-system review of systems was performed and is negative for pertinent findings except as documented above in the HPI. - Constitutional Constitutional: fatigue, lethargy, malaise, weakness, weight loss, no chills, no fever(s) - EENT Eyes: no change in vision Nose, mouth and throat: nasal congestion, no sore throat - Cardiovascular Cardiovascular ROS IM: palpitations, no chest pain - Respiratory Respiratory: cough, dyspnea, chest congestion, excessive phlegm production, change in phlegm color - Gastrointestinal Gastrointestinal: no abdominal pain, no bloating, no constipation, no cramping, no diarrhea, no nausea, no vomiting - Genitourinary Genitourinary ROS male: no dysuria, no nocturia, no urinary frequency, no urinary urgency - Musculoskeletal Musculoskeletal ROS IM: arthralgias, limited range of motion, myalgias, numbness , tingling, no neck pain - Integumentary Integumentary IM: new lesions, non-healing lesions, skin ulcer - Neurological Neurological ROS: abnormal gait, focal weakness, numbness, tingling, weakness, no dizziness - Psychiatric Psychiatric: no anxiety, no depression - Endocrine Endocrine IM: no polydipsia, no polyphagia, no polyuria - Hematologic/Lymphatic Hematologic/Lymphatic: no easy bleeding, no easy bruising - Constitutional Vitals: Temp Pulse Resp BP Pulse Ox 97.6 F 80 16 124/80 94 08/07/17 18:07 08/07/17 18:07 08/07/17 18:07 08/07/17 18:07 08/07/17 18:07 General appearance: Present: cooperative, mild distress. Absent: answers questions appropriately Exam: nods head yes to most questions, appears ill, cachectic - Head Head exam: Present: atraumatic, normocephalic Additional comments: temporal wasting - Eye Eye exam: Present: EOMI, PERRL - ENT ENT exam: Present: mucous membranes dry - Expanded ENT Exam Throat exam: Present: post pharyngeal erythema - Neck Neck exam general surgery: Present: supple. Absent: tenderness - Respiratory Respiratory exam: Present: decreased breath sounds, prolonged expiratory phase, wheezes Additional comments: coarse breath sounds bilaterally - Cardiovascular Cardiovascular exam: Present: +S1, +S2, systolic murmur, tachycardia - GI/Abdominal GI/Abdominal exam: Present: normal bowel sounds, soft. Absent: guarding, rebound - Additional comments: taylor - Extremities Exam Extremities exam: Present: pedal edema, tenderness. Absent: full ROM (Right sided paralysis, right upper extremity contracture, 3cm x 2 cm dry necrotic decubitus ulcer right heel), normal inspection - Neurological Exam Neurological exam: Present: alert, motor sensory deficit (right sided paralysis , RUE contracture), speech deficit. Absent: no focal deficits - Psychiatric Psychiatric exam: Present: normal affect, normal mood - Skin Skin exam: Present: dry, erythema, warm Additional comments: Stage 1 sacral pressure ulcer, 3cm x 2 cm dry necrotic decubitus ulcer right heel Internal Med - H&P Results - Labs CBC & Chem 7: 08/08/17 03:41 08/08/17 03:41 - EKG Data -: EKG Interpreted by Myself Rate: tachycardia (HR 111. OH interval < 200 ms, QRS duration 125, QTC is 409, inverted T waves noted in the lateral precordial leads) - EKG Data Prior EKG available for review: yes When compared to previous EKG: there is no significant change - Impressions ITS Impressions Chest X-Ray 08/07/17 13:15 IMPRESSION: Right infrahilar lung consolidation and medial left basilar patchy consolidation. Findings are concerning for pneumonia. Radiographic followup suggested. D/ /07/2017 14:24:08 Christopher Nur MD / [facility] Interpreting Provider: Christopher Nur MD Abdomen/Pelvis CT 08/07/17 13:27 IMPRESSION: 1. No acute abdominopelvic process demonstrated 2. Rectal stool impaction 3. Bilateral lower lobe airspace disease possibly representing pneumonia or aspiration D/ / Micah Sosa MD / Micah Sosa MD Interpreting Provider: Micah Sosa MD Head CT 08/07/17 13:27 IMPRESSION: No acute intracranial abnormality. D/ /07/2017 15:13:27 Desmond Arellano MD / [facility] Interpreting Provider: Desmond Arellano MD
[2017-08-07] MEDS ORDERED: Ondansetron ODT 4 MG TAB.RAPDIS SL PRN (20:46)
[2017-08-07] MEDS ORDERED: Acetaminophen 325 MG TABLET PO PRN (20:46)
[2017-08-07] MEDS ORDERED: Naloxone 0.4 MG/ML INJ IVP PRN (20:46)
[2017-08-07] MEDS ORDERED: Vancomycin (wt based) 1,000 MG VIAL IVPB SCH (21:00)
[2017-08-07] MEDS ORDERED: D5% in Water 1,000 ML IVC PRN (21:51)
[2017-08-07] MEDS ORDERED: *HR* Dextrose 50 % in Water (Syg) 50 ML SYRINGE IVP PRN (21:51)
[2017-08-07] MEDS ORDERED: Dextrose Gel 15 GM PO PRN ×2 (21:51)
[2017-08-07] MEDS ORDERED: *HR* Morphine 2 MG/ML SYRINGE IVP PRN (21:56)
[2017-08-07] MEDS ORDERED: Insulin LISPRO 300 UNITS/3 ML VIAL SQ SCH (22:00)
[2017-08-07] MEDS: Ipratropium/Albuterol Neb 3 ML IH SCH ×2 (22:21→22:35)
[2017-08-07] MEDS: Vancomycin 1,250 MG in D5% in Water 250 ML IVPB SCH (23:21)
[2017-08-08] MEDS: MethylPREDNISolone 40 MG/ML VIAL IVP SCH ×3 (00:53→15:46)
[2017-08-08] MEDS: Aztreonam 2,000 MG in D5% in Water (Mini-Bag+) 100 ML IVPB SCH ×2 (00:54→08:25)
[2017-08-08] MEDS: Insulin LISPRO 300 UNITS/3 ML VIAL SQ SCH ×4 (00:55→17:13)
--- NOTE | 2017-08-08 01:17 | Event Note ---
Date of Encounter: 08/08/17 Time of Encounter: 01:14 The patient was seen and examined independently and plan discussed with the resident and agree with the findings. Briefly patient was brought in for cough and was diagnosed with bilateral pneumonia. According to he does have some difficulty in swallowing and his appetite is low. He did have for barium swallow previously which according to was okay. But by overall history it appears that he has been having some issues with swallowing. He has history of recent stroke with right hemiparesis and laryngeal surgery. also mentioned about right upper extremity pain. Chest examination showed clear chest heart rate regular ejection systolic murmur. We have ordered a speech and swallowing evaluation as well as PT OT. Patient will be on triple antibiotics for bilateral pneumonia and UTI. Plan discussed with family and questions answered. Will last PT OT to evaluate him for right upper extremity pain which has significant her hemiparesis as well as contractures now. If indicated an MRI of the neck can be done as per discretion of morning team after PT evaluation is done. Patient INR is 5.3 and he has prosthetic aortic valve. His INR needs to come down and therefore Coumadin should be on hold. Plan discussed with the resident.
[2017-08-08 04:13] LABS: Basophils % 0.2 %; Hematocrit 34.6 % (37.5-50.1); Hemoglobin 11.4 g/dL (12.9-16.9); Immature Granulocytes % 0.4 % (0-4); Lymphocytes # 0.6 K/mcL (0.6-4.6); Lymphocytes % 11.9 %; Mean Corpuscular HGB Conc 32.9 g/dL (31.6-35.5); Mean Corpuscular Hemoglobin 28.5 pg (28.0-33.3); Mean Corpuscular Volume 86.5 fL (83.0-100.0); Monocytes # 0.1 K/mcL (0.0-1.3); Monocytes % 1.8 %; Neutrophils # 3.9 K/mcL (1.6-8.9); Platelet Count 203 K/mcL (140-400); Red Cell Distribution Width 14.5 % (11.5-14.5); Segmented Neutrophils % 85.7 %
[2017-08-08 04:17] LABS: Activated Partial Thrombo Time 54.2 Seconds (26.0-36.0)
[2017-08-08] MEDS: Ipratropium/Albuterol Neb 3 ML IH SCH ×6 (04:17→23:27)
[2017-08-08 04:23] LABS: INR 5.8; Prothrombin Time 64.9 Seconds (9.4-12.1)
[2017-08-08 04:24] LABS: Alanine Aminotransferase 12 Units/L (0-55); Albumin 2.1 g/dL (3.5-5.0); Albumin/Globulin Ratio 0.6 (1.1-2.2); Alkaline Phosphatase 111 Units/L (38-126); Aspartate Amino Transferase 19 Units/L (5-34); BUN/Creatinine Ratio 17 (6-26); Bilirubin,Total 0.6 mg/dL (0.2-1.2); Blood Urea Nitrogen 12 mg/dL (8-26); Calcium 8.6 mg/dL (8.6-10.8); Carbon Dioxide 17 mEq/L (19-29); Chloride 109 mEq/L (98-109); Globulin 3.3 g/dL (2.4-3.5); Glucose 119 mg/dL (70-99); Osmolality,Calculated 279 (280-300); Potassium 3.8 mEq/L (3.5-4.5); Sodium 134 mEq/L (136-145); Total Protein 5.4 g/dL (6.0-8.3); eGFR For African Americans > 60 (> 60); eGFR For Non-African Americans > 60 (> 60)
[2017-08-08] MEDS: Sennosides/Docusate Sodium TABLET PO SCH (08:16)
[2017-08-08] MEDS: Magnesium Oxide 400 MG TABLET PO SCH (08:16)
[2017-08-08] MEDS: Famotidine 20 MG/2 ML VIAL IVP SCH ×2 (08:26→17:11)
[2017-08-08] MEDS: 0.9 % Sodium Chloride 1,000 ML IVC SCH (08:34)
[2017-08-08] MEDS: Levofloxacin 750 MG/150 ML 750 MG/150 ML BAG IVPB SCH (09:55)
--- NOTE | 2017-08-08 10:08 | Internal Med Progress Note ---
<Vikki Todd - Last Filed: 08/08/17 15:32> Date of Encounter: 08/08/17 Time of Encounter: 10:06 - Assessment and plan (1) Pneumonia Current Visit: Yes Status: Acute Assessment and plan: Patient with prior history of MRSA pneumonia. He reports yellow sputum production, shortness of breath, and weakness. -CT scan shows bilateral pneumonia. -Barium swallow shows no aspiration. -We are treating him broad spectrum due to his multiple comorbidities and history of MRSA. Once we have the eardrum and blood culture results, we will de -escalate coverage. Day 1 of cefepime, day 2 of Levaquin and vancomycin. Qualifiers: Pneumonia type: due to unspecified organism Laterality: bilateral Lung location: unspecified part of lung Qualified Code(s): J18.9 - Pneumonia, unspecified organism (2) Acute exacerbation of chronic obstructive pulmonary disease (COPD) Current Visit: Yes Status: Acute Assessment and plan: Continue duo nebs, steroids, and antibiotics. (3) Urinary tract infection Current Visit: Yes Status: Acute Assessment and plan: Urinalysis suggestive of UTI. -Prior history of MRSA UTI. -Contact precautions -Follow-up urine culture. Qualifiers: Urinary tract infection type: catheter-associated UTI Indwelling urinary catheter type: indwelling urethral catheter Encounter type: initial encounter Qualified Code(s): T83.511A - Infection and inflammatory reaction due to indwelling urethral catheter, initial encounter; N39.0 - Urinary tract infection , site not specified; N39.0 - Urinary tract infection, site not specified (4) Elevated INR (international normalized ratio) due to prior anticoagulant medication ingestion Current Visit: No Status: Acute Assessment and plan: Patient's INR 5.8. We will hold Coumadin. Procedure dose. (5) Mechanical heart valve present Current Visit: No Status: Chronic Assessment and plan: Patient with remote history of rheumatic fever and bicuspid aortic valve. -Hold Coumadin due to a supratherapeutic INR. (6) Coronary artery disease Current Visit: No Status: Chronic Assessment and plan: Continue home medications Qualifiers: Coronary Disease-Associated Artery/Lesion type: unspecified vessel or lesion type [place] vs. transplanted heart: [place] heart Associated angina: without angina Qualified Code(s): I25.10 - Atherosclerotic heart disease of [place] coronary artery without angina pectoris (7) HTN (hypertension) Current Visit: No Status: Chronic Assessment and plan: And to need to monitor. Qualifiers: Hypertension type: unspecified Qualified Code(s): I10 - Essential (primary ) hypertension (8) Hemiparesis and aphasia as late effect of cerebrovascular accident (CVA) Current Visit: Yes Status: Chronic Assessment and plan: Prior CVA in February with residual A phage and right-sided paralysis. -CT brain reveals no acute intracranial abnormality. -Follow speech PT OT recommendations. (9) Severe protein-calorie malnutrition Current Visit: Yes Status: Acute Assessment and plan: Pureed diet. -Follow nutrition recommendations. (10) Intracranial shunt Current Visit: Yes Status: Chronic Assessment and plan: CT brain reveals trans-right frontal ventriculostomy catheter with termination in the left frontal horn. No features to suggest acute hydrocephalus. (11) DVT prophylaxis Current Visit: Yes Status: Acute Assessment and plan: SCDS - Subjective Interval history: Mr. Carrasco is a 62-year-old male with past medical history of diabetes mellitus, COPD, [place] with a stage and right sided paralysis, history of tracheostomy, and a prosthetic aortic valve. He presented to the emergency department with a persistent cough producing sputum. Patient had an indwelling Ya catheter. He was found to have bilateral pneumonia and UTI. This morning , patient is resting comfortably. His is not by his side. He is a poor historian. He denies any complaints including shortness of breath or chest pain , nausea vomiting or diarrhea, or dizziness or lightheadedness. - Constitutional Vitals: Temp Pulse Resp BP Pulse Ox 97.9 F 88 22 125/81 98 08/08/17 07:28 08/08/17 07:28 08/08/17 08:10 08/08/17 07:28 08/08/17 08:10 General appearance: Present: cooperative, mild distress. Absent: answers questions appropriately - Respiratory Respiratory exam: Present: rales, rhonchi. Absent: accessory muscle use, respiratory distress, wheezes, tachypnea - Cardiovascular Cardiovascular exam: Present: RRR, +S1, +S2. Absent: tachycardia - GI/Abdominal GI/Abdominal exam: Present: normal bowel sounds, soft, tenderness (Mild bilateral lower abdominal tenderness.), no peritoneal signs. Absent: distended - Extremities Exam Extremities exam: Present: warm, radial pulses palpable and symmetrical. Absent : calf tenderness, cyanotic, pedal edema Additional comments: Right lower extremity with bandage around the heel. Bandages clean dry and intact. Internal Medicine: Result - Labs CBC & Chem 7: 08/08/17 03:41 08/08/17 03:41 Labs: Short CBC 08/08/17 Range/Units 03:41 WBC 4.6 D (4.3-11.1) K/mcL Hgb 11.4 L D (12.9-16.9) g/dL Hct 34.6 L (37.5-50.1) % Plt Count 203 (140-400) K/mcL Neutrophils # 3.9 (1.6-8.9) K/mcL BMP 08/08/17 03:41 Sodium 134 L Potassium 3.8 Chloride 109 Carbon Dioxide 17 L BUN 12 Creatinine 0.70 L Glucose 119 H Calcium 8.6 Cardiac Enzymes 08/07/17 08/08/17 Range/Units 21:40 03:41 Troponin I 0.02 0.02 (0-0.03) ng/mL Liver Function 08/08/17 Range/Units 03:41 Total Bilirubin 0.6 (0.2-1.2) mg/dL AST 19 (5-34) Units/L ALT 12 (0-55) Units/L Alkaline Phosphatase 111 (38-126) Units/L Albumin 2.1 L (3.5-5.0) g/dL - ABG Interpretation ABG results: PT/INR, D-dimer PT 64.9 Seconds (9.4-12.1) H* 08/08/17 03:41 - Impressions Impressions Lower Extremity CT 08/08/17 05:11 IMPRESSION: No CT evidence of infection. D/ /08/2017 07:46:07 Jayden Barreto MD / [facility] Interpreting Provider: Jayden Barreto MD - VTE Documentation of Mechanical Device: Intermittent pneumatic compression device Consult Discharge Plan - Plan Referrals: Seven Jean MD [Primary Care Provider] - 08/14/17 1:15 pm <Robe Yee - Last Filed: 08/08/17 16:30> Date of Encounter: 08/08/17 - Constitutional Vitals: Temp Pulse Resp BP Pulse Ox 97.9 F 55 18 117/78 96 08/08/17 15:15 08/08/17 15:15 08/08/17 16:12 08/08/17 15:15 08/08/17 16:12 Internal Medicine: Result - Labs CBC & Chem 7: 08/08/17 03:41 08/08/17 03:41 Labs: Short CBC 08/08/17 Range/Units 03:41 WBC 4.6 D (4.3-11.1) K/mcL Hgb 11.4 L D (12.9-16.9) g/dL Hct 34.6 L (37.5-50.1) % Plt Count 203 (140-400) K/mcL Neutrophils # 3.9 (1.6-8.9) K/mcL BMP 08/08/17 03:41 Sodium 134 L Potassium 3.8 Chloride 109 Carbon Dioxide 17 L BUN 12 Creatinine 0.70 L Glucose 119 H Calcium 8.6 Cardiac Enzymes 08/07/17 08/08/17 08/08/17 Range/Units 21:40 03:41 09:27 Troponin I 0.02 0.02 0.02 (0-0.03) ng/mL Liver Function 08/08/17 Range/Units 03:41 Total Bilirubin 0.6 (0.2-1.2) mg/dL AST 19 (5-34) Units/L ALT 12 (0-55) Units/L Alkaline Phosphatase 111 (38-126) Units/L Albumin 2.1 L (3.5-5.0) g/dL - ABG Interpretation ABG results: PT/INR, D-dimer PT 64.9 Seconds (9.4-12.1) H* 08/08/17 03:41 - Impressions Impressions Lower Extremity CT 08/08/17 05:11 IMPRESSION: No CT evidence of infection. D/ : / 08/08/2017 07:46:07 Jayden Barreto MD / [facility] Interpreting Provider: Jayden Barreto MD Videofluoroscopic Swallow 08/08/17 07:59 IMPRESSION: No penetration or aspiration was seen with the various consistencies used. Please see separate speech pathology report for full discussion of findings and recommendations. D/ / 08/08/2017 11:57:34 Faisal Ware MD / [facility] Interpreting Provider: Faisla Ware MD - Attending Attestation I saw and examined the patient independently. I have discussed with resident Dr Shirley regarding the management plan, agree with the documentation. Patient has less cough now. No fevers. No shortness of breath or wheezing. Vitals stable. Will continue Vanco, cefepime, and Levaquin. Follow-up blood culture.
[2017-08-08] MEDS: Vancomycin 1,250 MG in D5% in Water 250 ML IVPB SCH ×2 (11:39→22:03)
[2017-08-08 16:58] LABS: Hemoglobin A1C 5.3 %
[2017-08-08] MEDS: Cefepime HCl 2,000 MG in D5% in Water (Mini-Bag+) 100 ML IVPB SCH (17:12)
[2017-08-08] MEDS ORDERED: Warfarin perPT PO PRN (18:00)
--- NOTE | 2017-08-08 20:10 | Electrocardiograph Report ---
[address] [place], [place] [address] Test Date: 2017-08-07 Pat Name: Hunter Carrasco Department: 103 Room: 3A31 Gender: M Training Manager: YSABEL : 1955 Requested By: Teddy Faustin Order Number: [id number] Reading MD: Dean Garcia MD Measurements Intervals [place] Rate: 111 P: HI: 0 QRS: -63 QRSD: 125 T: 104 QT: 344 QTc: 409 Interpretive Statements SINUS TACHYCARDIA WITH RAPID VENTRICULAR RESPONSE LEFT ANTERIOR FASCICULAR BLOCk INFERIOR MYOCARDIAL INFARCTION, OF INDETERMINATE AGE WITH POSTERIOR EXTENSION ANTEROLATERAL MYOCARDIAL INFARCTION Electronically Signed On 08-08-2017 20:08:48 EDT by Dean Garcia MD
[2017-08-09 01:07] LABS: Acinetobacter baumannii by PCR Not Detected (Not Detect); Candida albicans by PCR Not Detected (Not Detect); Candida glabrata by PCR Not Detected (Not Detect); Candida krusei by PCR Not Detected (Not Detect); Candida parapsilosis by PCR Not Detected (Not Detect); Candida tropicalis by PCR Not Detected (Not Detect); Enterococcus by PCR Not Detected (Not Detect); Escherichia coli by PCR Not Detected (Not Detect); Klebsiella oxytoca by PCR Not Detected (Not Detect); Klebsiella pneumoniae by PCR Not Detected (Not Detect); Pseudomonas aeruginosa by PCR Not Detected (Not Detect); Serratia marcescens by PCR Not Detected (Not Detect); Staphylococcus aureus by PCR Not Detected (Not Detect); Streptococcus agalactiae(B)PCR Not Detected (Not Detect); Streptococcus by PCR Not Detected (Not Detect); Streptococcus pneumoniae PCR Not Detected (Not Detect); Streptococcus pyogenes (A) PCR Not Detected (Not Detect); blaKPC Carbapenem-Resist Gene Not Detected (Not Detect); mecA Methicillin-Resist Gene Not Detected (Not Detect); vanA/B Vancomycin-Resist Genes Not Detected (Not Detect)
[2017-08-09] MEDS: Ipratropium/Albuterol Neb 3 ML IH SCH ×3 (03:37→11:28)
[2017-08-09 03:47] LABS: Basophils % 0.2 %; Eosinophils % 0.2 %; Hematocrit 33.2 % (37.5-50.1); Immature Granulocytes % 0.7 % (0-4); Lymphocytes # 0.6 K/mcL (0.6-4.6); Lymphocytes % 10.5 %; Mean Corpuscular HGB Conc 33.1 g/dL (31.6-35.5); Mean Corpuscular Hemoglobin 29.1 pg (28.0-33.3); Mean Corpuscular Volume 87.8 fL (83.0-100.0); Mean Platelet Volume 10.4 fL (9.4-12.4); Monocytes # 0.2 K/mcL (0.0-1.3); Monocytes % 3.7 %; Nucleated Red Blood Cells 0.4 /100 WBC (0); Platelet Count 246 K/mcL (140-400); Red Blood Count 3.78 M/mcL (4.19-5.50); Red Cell Distribution Width 14.4 % (11.5-14.5); Segmented Neutrophils % 84.7 %
[2017-08-09 03:48] LABS: Neutrophils # 4.7 K/mcL (1.6-8.9)
[2017-08-09 03:57] LABS: Prothrombin Time 75.1 Seconds (9.4-12.1)
[2017-08-09 03:58] LABS: INR 6.7
[2017-08-09 04:07] LABS: BUN/Creatinine Ratio 15 (6-26); Blood Urea Nitrogen 10 mg/dL (8-26); Calcium 8.6 mg/dL (8.6-10.8); Carbon Dioxide 14 mEq/L (19-29); Chloride 108 mEq/L (98-109); Glucose 203 mg/dL (70-99); Osmolality,Calculated 279 (280-300); Sodium 132 mEq/L (136-145); eGFR For African Americans > 60 (> 60); eGFR For Non-African Americans > 60 (> 60)
[2017-08-09 04:08] LABS: Potassium 3.5 mEq/L (3.5-4.5)
[2017-08-09] MEDS: Insulin LISPRO 300 UNITS/3 ML VIAL SQ SCH ×3 (04:47→14:33)
[2017-08-09] MEDS: Cefepime HCl 2,000 MG in D5% in Water (Mini-Bag+) 100 ML IVPB SCH ×2 (05:39→17:18)
[2017-08-09] MEDS: Famotidine 20 MG/2 ML VIAL IVP SCH (05:39)
[2017-08-09] MEDS: Magnesium Oxide 400 MG TABLET PO SCH (07:59)
[2017-08-09] MEDS: Levofloxacin 750 MG/150 ML 750 MG/150 ML BAG IVPB SCH (08:00)
[2017-08-09] MEDS: Sennosides/Docusate Sodium TABLET PO SCH (08:00)
--- NOTE | 2017-08-09 09:10 | Podiatry Consult Note ---
Date of Encounter: 08/09/17 Time of Encounter: 08:45 Assessment and Plan (1) Diabetic ulcer of heel Current visit: Yes Status: Acute Assessment: Diabetic right heel ulcer, with dry eschar secondary to pressure. No fluctuance , no pus, no odor, no periwound erythema. Patient has right sided paralysis and right foot is externally rotated while supine. CT of RLE: There is no evidence of acute fracture or dislocation. No bony destructive changes are identified. Small Achilles insertional enthesophytes are noted. There are mild tibiotalar marginal osteophytes. Midfoot alignment is within normal limits. The hallux sesamoids are located and intact. Small vessel vascular calcifications are noted. There is mild thickening of the Achilles tendon. No soft tissue gas is appreciated. No significant soft tissue ulceration is identified. WBC: 5.6, INR: 6.7, ESR: 106, CRP: 218 Plan: Vascular studies ordered of BLE due to diminished pedal pulses and small vessel vascular calcifications seen on the CT of the RLE. Continue dry dressing changes daily as ordered. Heel medix boots ordered, keep heels floated away from pressure. Any surgical debridement is contraindicated at this time due to INR of 6.7. If vascular studies are with in normal limits and once INR is therapeutic recommend an enzymatic debrider (Santyl ointment) daily to the right heel ulcer. Qualifiers: Diabetes mellitus type: type 2 Laterality: right Non-pressure ulcer stage : with other severity Qualified Code(s): E11.621 - Type 2 diabetes mellitus with foot ulcer; L97.418 - Non-pressure chronic ulcer of right heel and midfoot with other specified severity; L97.418 - Non-pressure chronic ulcer of right heel and midfoot with other specified severity (2) Elevated INR (international normalized ratio) due to prior anticoagulant medication ingestion Current visit: No Status: Acute (3) CVA, old, hemiparesis Current visit: No Status: Chronic History of Present Illness HPI: Mr. Carrasco is a 62 year old male admitted to [facility] with a UTI and pneumonia. Patient has a medical history significant for diabetes mellitus, COPD, CVA with right-sided paralysis, history of tracheostomy, and prosthetic aortic valve. Podiatry was consulted for a necrotic ulcer to the right heel. Patient is lying in bed with the dressing dry and intact to the right heel. There is a pillow underneath BLE. Patient is alert and awake in bed. Patient is a poor historian and unable to state how long the ulcer has been present or any further details. Patient had a CT of the RLE that was negative for osteomyelitis or fluid collection. Patient was evaluated by Wound Care and recommended dry dressing and foam boot. INR continues to remain elevated at 6.7 today. Per records this ulcer of the right heel was not present during his admission in April. Patient was discharged to [facility] and is back at home with hospice. Past Med Surg Social Fam HX - Past Medical History Medical history: CHF, COPD, CVA, diabetes, hyperlipidemia, hypertension, myocardial infarction, valvular heart disease, other Psychiatric history: depression - Past Surgical History Surgical History: appendectomy, coronary bypass (CABG), vascular surgery, other (Mechanical aortic valve, right frontal ventriculostomy shunt) - Social History Smoking Status: Former smoker Smokeless Tobacco Status: No Alcohol use: none Drug use: none - Family History Mother Living Status: Hx Family Cardiac Disorders: Yes Hx Family Endocrine Disorder: Yes (DM) Father Living Status: Hx Family Cardiac Disorders: Yes Hx Family Endocrine Disorder: Yes (DM) Medications and Allergies Lovastatin 40 mg PO HS 05/07/17 [History] Albuterol Neb [Proventil Neb] 2.5 mg IH Q2H PRN inh 05/10/17 [Rx] Magnesium Oxide [Mag-Ox] 400 mg PO DAILY 08/07/17 [History] Potassium Chloride [K-Tab ER] 20 meq PO DAILY 08/07/17 [History] Sennosides/Docusate Sodium [Senna-Docusate Sodium Tablet] 1 each PO DAILY [History] Warfarin Sodium [Warfarin Sodium] 2.5 mg PO DAILY 08/07/17 [History] 3 Allergy/AdvReac Type Severity Reaction Status Date / Time Amoxicillin [From Trimox] Allergy See Verified 03/26/17 11:34 Comments Penicillins Allergy See Verified 03/26/17 11:34 Comments heparin AdvReac See Verified 08/07/17 15:28 Comments All Systems Reviewed: A 10-system review of systems was performed and is negative for pertinent findings except as documented above in the HPI. Physical Exam - Constitutional Vitals: Temp Pulse Resp BP Pulse Ox 98.6 F 72 16 133/74 97 08/09/17 06:27 08/09/17 06:27 08/09/17 08:06 08/09/17 06:27 08/09/17 08:06 - Neurological Exam Neurological exam: Present: alert (to self) - Vascular Capillary Refill: less than 3 seconds Lower Extremity Vascular: motor deficit (RLE paralysis secondary to CVA.), pulse deficit (pedal pulses are audible with doppler, skin is warm. ) - Ankle & Foot Foot appearance: other (Ulcer to the lateral aspect of the right heel with dry eschar, no periwound erythema, no pus, no odor. ) Results - Labs Result Diagrams: 08/09/17 03:23 08/09/17 03:23 Labs: Abnormal lab results RBC 3.78 M/mcL (4.19-5.50) L 08/09/17 03:23 Hgb 11.0 g/dL (12.9-16.9) L 08/09/17 03:23 Hct 33.2 % (37.5-50.1) L 08/09/17 03:23 Nucleated RBCs/100 WBC 0.4 /100 WBC (0) H 08/09/17 03:23 ESR 106 mm/hr (0-10) H 08/07/17 21:40 PT 75.1 Seconds (9.4-12.1) H* 08/09/17 03:23 INR 6.7 H* 08/09/17 03:23 APTT 54.2 Seconds (26.0-36.0) H 08/08/17 03:41 Sodium 132 mEq/L (136-145) L 08/09/17 03:23 Carbon Dioxide 14 mEq/L (19-29) L 08/09/17 03:23 Creatinine 0.65 mg/dL (0.72-1.25) L 08/09/17 03:23 Glucose 203 mg/dL (70-99) H 08/09/17 03:23 POC Glucose 168 (58-89) H 08/09/17 08:22 Calculated Osmolality 279 (280-300) L 08/09/17 03:23 Direct Bilirubin 0.6 mg/dL (0.0-0.5) H 08/07/17 13:15 C-Reactive Protein 218 mg/L (Less than 5) H 08/07/17 21:40 B-Natriuretic Peptide 235 pg/mL (0-100) H 08/07/17 13:15 Serum Total Protein 5.4 g/dL (6.0-8.3) L 08/08/17 03:41 Albumin 2.1 g/dL (3.5-5.0) L 08/08/17 03:41 Albumin/Globulin Ratio 0.6 (1.1-2.2) L 08/08/17 03:41 Urine Clarity Turbid (Clear) A 08/07/17 14:13 Urine Protein 30 mg/dL (Neg-Trace) H 08/07/17 14:13 Urine Blood Large (Negative) H 08/07/17 14:13 Urine Nitrite Positive (Negative) A 08/07/17 14:13 Urine Bilirubin Small (Negative) H 08/07/17 14:13 Ur Leukocyte Esterase Large (Negative) H 08/07/17 14:13 Urine Microscopic RBC TNTC per hpf (0-3) H 08/07/17 14:13 Urine Microscopic WBC TNTC per hpf (0-3) H 08/07/17 14:13 Ur Squamous Epith Cells Many per lpf (None-Few) H 08/07/17 14:13 Urine Bacteria Many per hpf (None-Few) H 08/07/17 14:13 Ur Culture Indicated? YES (NO) A 08/07/17 14:13 H & H 08/09/17 Range/Units 03:23 Hgb 11.0 L (12.9-16.9) g/dL Hct 33.2 L (37.5-50.1) % All other labs normal. Consult Discharge Plan - Plan Referrals: Seven Jean MD [Primary Care Provider] - 08/14/17 1:15 pm
[2017-08-09] MEDS ORDERED: Ringers Solution, Lactated 500 ML IVC ONE (10:50)
[2017-08-09] MEDS ORDERED: Ipratropium/Albuterol Neb 3 ML IH PRN (11:51)
--- NOTE | 2017-08-09 14:24 | Infectious Disease Consult ---
Date of Encounter: 08/09/17 Time of Encounter: 14:22 Assessment and Plan (1) Bacteremia Status: Acute Assessment and plan: Causative organism unclear. Blood cultures drawn 08/07/17 are positive 1/2 sets for GPC but PCR did not case picker anything. Discussed with Yvonne in the Micro lab who states it looks like a CONS, but we should have an ID in the morning. Source unclear, but given the lack of sepsis and that only 1 blood culture is positive, consider that this may be a contaminant. The patient has a mechanical aortic valve. If this is deemed a true bacteremia, will need to treat as complicated. No endocarditis stigmata noted on exam. Repeat blood cultures x 2 sets now. Continue Vancomycin IV for now. Pharmacy to dose. Goal trough ~15. Duration of treatment depends on the clinical picture. Monitor renal function and for drug toxicity and dose-adjust antibiotics. (2) Pneumonia Status: Acute Assessment and plan: Location: Right infrahilar and left medial basilar. Causative organism unclear. Given the patient's history of CVA, concern for aspiration despite normal modified barium swallow test. Send sputum for gram stain and culture if the patient is able to give an adequate sample. Send urine for S. pneumo and Legionella UAT. Repeat CXR in 2 days. Discontinue levaquin. Continue Cefepime 2 grams IV Q12H. Continue Vancomycin as above. Start Flagyl 500mg IV Q8H to cover possible aspiration. Duration of treatment depends on the clinical picture. Monitor renal function and for drug toxicity and dose-adjust antibiotics. Qualifiers: Pneumonia type: due to unspecified organism Laterality: bilateral Lung location: unspecified part of lung Qualified Code(s): J18.9 - Pneumonia, unspecified organism (3) Urinary tract infection Status: Acute Assessment and plan: Asymptomatic bacteriuria vs. true infection. Per the patient's , the patient had no urinary complaints prior to admission. Causative organism MRSA. Continue antibiotics as above. Recommend discontinuing taylor catheter. Qualifiers: Urinary tract infection type: acute cystitis Hematuria presence: without hematuria Qualified Code(s): N30.00 - Acute cystitis without hematuria (4) Diabetic ulcer of heel Status: Acute Assessment and plan: Location: Right heel. CT scan of the RLE negative for OM or abscess. ESR 106, CRP 218, but these could be elevated secondary to the patient's PNA. Podiatry consulted. Await recommendations. Aggressive wound care. Clinically, does not appear acutely infected, but the antibiotics for the patient's PNA should cover in case there is underlying infection. Qualifiers: Diabetes mellitus type: type 2 Laterality: right Non-pressure ulcer stage : with other severity Qualified Code(s): E11.621 - Type 2 diabetes mellitus with foot ulcer; L97.418 - Non-pressure chronic ulcer of right heel and midfoot with other specified severity; L97.418 - Non-pressure chronic ulcer of right heel and midfoot with other specified severity (5) Elevated INR (international normalized ratio) due to prior anticoagulant medication ingestion Status: Acute (6) Mechanical heart valve present Status: Chronic (7) Constipation Status: Acute Assessment and plan: CT of the abdomen and pelvis shows fecal impaction. Bowel regimen per the primary team's recommendations. Qualifiers: Constipation type: unspecified constipation type Qualified Code(s): K59.00 - Constipation, unspecified (8) Hemiparesis and aphasia as late effect of cerebrovascular accident (CVA) Status: Chronic Assessment and plan: Status post ischemic CVA with intraventricular hemorrhage December 2016. (9) Severe protein-calorie malnutrition Status: Acute (10) Diabetes mellitus Status: Chronic Assessment and plan: Controlled. HgbA1C 5.3%. Recommend aggressive glucose monitoring and control to promote wound healing and prevent infection. Qualifiers: Diabetes mellitus type: type 2 Diabetes mellitus complication status: with skin complications Diabetes mellitus complication detail: with foot ulcer Diabetes mellitus long term acute care registered nurse insulin use: without correction use Qualified Code( s): E11.621 - Type 2 diabetes mellitus with foot ulcer; L97.509 - Non-pressure chronic ulcer of other part of unspecified foot with unspecified severity; L97.509 - Non-pressure chronic ulcer of other part of unspecified foot with unspecified severity; L97.509 - Non-pressure chronic ulcer of other part of unspecified foot with unspecified severity; L97.509 - Non-pressure chronic ulcer of other part of unspecified foot with unspecified severity Infectious Disease HPI - Data of Consult Patient: new to practice Consult date: 08/09/17 Requesting Physician: Robe Yee MD Primary Care Provider: Seven Jean MD - Consult Narrative Reason for consult: MRSA UTI, GPC bacteremia History of present illness: Mr. Carracso is a 62 year old male with a past medical history of ischemic CVA with intraventricular hemorrhage in December 2016, CHF, COPD, diabetes, hypertension, CAD, status post aortic valve replacement. The patient was admitted to the hospital August 07 for pneumonia and UTI. We are consulted August 09 for further recommendations regarding gram-positive bacteremia and MRSA UTI. The patient is a 62-year-old male with past medical history as stated above. The patient presented to the emergency department with complaints of a 5 day history of cough and shortness of breath. The patient is aphasic and unable to provide with much information, therefore, most of the information is obtained from the medical record and his who is at the bedside. Upon arrival to the ER, the patient was afebrile. He was mildly tachycardic and hypoxic. Laboratory studies revealed a normal white blood cell count with a normal basic metabolic panel. Lactic acid was normal. INR was elevated at 5.3. Inflammatory markers were elevated ESR of 106 and a CRP of 218. Blood cultures were obtained 2 sets. A Taylor catheter was placed and a urine specimen was collected that was positive for nitrates, large amount of leukocyte esterase, and too numerous to count white blood cells. CT of the head was negative. CT abdomen and pelvis showed findings consistent with fecal rectal impaction. Chest x-ray showed a right infrahilar and medial left basilar consolidations consistent with pneumonia. Patient was started empirically on IV Levaquin, IV vancomycin, and IV aztreonam. He was admitted to the hospital for further evaluation. is admission, the patient has remained afebrile hemodynamically stable. His white blood cell count has remained normal. The patient has an ulcer to the right heel that has been present for several months so the primary team ordered a right lower extremity CT scan that was negative for abscess or ostium myelitis. Plantars been consulted and has recommended vascular studies and aggressive wound care. The patient also had a modified barium swallow that was negative for any aspiration. Currently, the patient is on IV cefepime, IV Levaquin, and IV vancomycin. Blood cultures obtained in the emergency department have come back +1 out of 2 sets for gram-positive cocci, but the PCR did not case picker anything. Additionally, the patient's urine culture is positive for MRSA. We've been asked to evaluate and make further recommendations. during my exam today, the patient unable to provide me with much information. Per the patient's , the patient was in his usual state of health until Sunday when he developed a productive cough with yellow sputum and some shortness of breath. Able to tell me that he has some pain in his chest that is improved since admission as well as chronic back pain and complaints of right hand pain. He is unable to provide me with any other information. The patient's medical record reveals that when he was hospitalized at [facility] for his strokes back in December, he was diagnosed with MRSA pneumonia as well as HSV pneumonia. He was treated with linezolid and acyclovir. He was discharged to [facility] for about a month and then discharged to a local [facility] where he stayed until he was discharged home in May. The patient previously required tracheostomy and PEG tube, which have been reversed. CC: Robe Yee MD Past Med Surg Social Fam HX - Past Medical History Attestation: Yes The following information was validated with the patient. Source: old records reviewed, nursing notes reviewed Medical history: CHF, COPD, CVA (Hemorrhagic and ischemic December 2016), diabetes , hyperlipidemia, hypertension, myocardial infarction, valvular heart disease, other (Right sided hemiparesis) Psychiatric history: depression - Past Surgical History Surgical History: appendectomy, coronary bypass (CABG), vascular surgery, other (Mechanical aortic valve, right frontal ventriculostomy shunt) - Social History Smoking Status: Former smoker Smokeless Tobacco Status: No Alcohol use: none Drug use: none Occupational status: disabled Current living situation: Home, With Family Activity Level: Bed bound Recent Out of Country Travel Within the Last 8 Weeks: No Exposure or Possible Exposure to Illness During Travel: No - Family History Mother Living Status: Hx Family Cardiac Disorders: Yes Hx Family Endocrine Disorder: Yes (DM) Father Living Status: Hx Family Cardiac Disorders: Yes Hx Family Endocrine Disorder: Yes (DM) Infectious Disease-CN:Meds Lovastatin 40 mg PO HS 05/07/17 [History] Albuterol Neb [Proventil Neb] 2.5 mg IH Q2H PRN inh 05/10/17 [Rx] Magnesium Oxide [Mag-Ox] 400 mg PO DAILY 08/07/17 [History] Potassium Chloride [K-Tab ER] 20 meq PO DAILY 08/07/17 [History] Sennosides/Docusate Sodium [Senna-Docusate Sodium Tablet] 1 each PO DAILY [History] Dextrose 50 % in Water (Syg) [Dextrose 50% (Syg)] 25 ml IVP AD PRN syringe [Rx] Dextrose Gel [Gluctose] 15 gm PO ONCE PRN gel..gram. 08/10/17 [Rx] Dextrose Gel [Gluctose] 30 gm PO ONCE PRN gel..gram. 08/10/17 [Rx] Famotidine [Pepcid] 20 mg PO BID tablet 08/10/17 [Rx] Glucagon, Human Recombinant [Glucagen] 1 mg IM ONCE PRN vial 08/10/17 [Rx] Insulin LISPRO [HumaLOG] 0 units SQ HS vial 08/10/17 [Rx] Insulin LISPRO [HumaLOG] 0 units SQ TIDAC vial 08/10/17 [Rx] Ipratropium/Albuterol Neb [Duoneb] 3 ml IH [id number] PRN inhsol 08/10/17 [Rx] Lactobacillus [Culturelle] 1 each PO BID cap.sprink 08/10/17 [Rx] Nitrofurantoin (BID) [Macrobid] 100 mg PO BIDWM capsule 08/10/17 [Rx] Ondansetron ODT [Zofran ODT] 4 mg SL Q6HR PRN tab.rapdis 08/10/17 [Rx] 3 Allergy/AdvReac Type Severity Reaction Status Date / Time Amoxicillin [From Trimox] Allergy See Verified 03/26/17 11:34 Comments Penicillins Allergy See Verified 03/26/17 11:34 Comments heparin AdvReac See Verified 08/07/17 15:28 Comments ROS unobtainable: due to mental status Exam - Constitutional Vitals: Temp Pulse Resp BP Pulse Ox 98.9 F 72 16 103/69 95 08/09/17 10:55 08/09/17 10:55 08/09/17 11:29 08/09/17 10:55 08/09/17 11:29 General appearance: average body habitus, cooperative, no acute distress - Head Head exam: Present: atraumatic, normal inspection, normocephalic - Eye Pupils: Present: normal accommodation Additional comments: No subconjunctival hemorrhage noted. - ENT ENT exam: Present: mucous membranes dry - Neck Neck exam: Present: normal inspection - Respiratory Respiratory exam: Present: CTAB. Absent: rales, respiratory distress, rhonchi, wheezes - Cardiovascular Cardiovascular exam: Present: RRR, +S1, +S2 - GI/Abdominal GI/Abdominal exam: Present: normal bowel sounds, soft. Absent: distended, tenderness - Extremities Exam Extremities exam: Present: tenderness (Right hand). Absent: joint swelling, pedal edema Additional comments: Right foot dressing C/D/I. No endocarditis stigmata noted. - Neurological Exam Neurological exam: Present: alert, speech deficit (Garbled speech). Absent: no focal deficits (RUE/RLE paralysis noted.) Additional comments: Patient appears to have receptive aphasia. Unable to obtain ROS from the patient. - Psychiatric Psychiatric exam: Present: flat affect - Skin Skin exam: Present: dry, intact, normal color, warm Infectious Disease CN: Results - Labs CBC & Chem 7: 08/10/17 05:00 08/10/17 05:00 - VTE Documentation of Mechanical Device: Intermittent pneumatic compression device Consult Discharge Plan - Plan Referrals: Seven Jean MD [Primary Care Provider] - 08/14/17 1:15 pm - Attending Attestation I examined this patient and my medical decision-making was reviewed with the Resident Physician. I agree with the documented findings, disposition and treatment plan as described except to the extent set forth below. This is an addendum to original report dictated by Nichole Estevez CNP. Please refer to Maria Luz note for full detail. Patient is a 8-year-old gentleman with extensive past medical history including history of CVA with intraventricular hemorrhage in December 2016 was seen at [facility] that initially he had a PEG and trach was brought into the emergency department by his stating that his been having cough with sputum production or shortness of breath 5 days. The whole history was taken from records and family members since the patient is aphasic and he just nods yes to every question I asked him. Workup revealed a chest x-ray with pneumonia, blood cultures grew 1 out of 2 gram-positive cocci final ID pending, urine grew MRSA. We were asked to evaluate the patient and make further recommendations. His exam on the patient he appears nontoxic. He does have some rhonchi bilateral lung barlow. Abdomen is nontender no guarding. Patient has an indwelling Taylor. He also has macerated skin on his back suggesting stage I decubitus ulcer. He also has necrotic heel. On further questioning nurse tells me that his urine when the Taylor was extremely thick and gunky. At this point agree with broad-spectrum antibiotics for this patient including vancomycin, cefepime. DC Levaquin and start Flagyl. Even though he had a negative swallow eval Im still concerned for aspiration. Patient is allergic to penicillin so we cannot do Zosyn. Await cultures to finalize. Get podiatry to evaluate his ulcer on the heel. Monitor kidney function closely. We will continue to follow. Patient also had elevated INR and had history of intracranial bleed. Patient also has a mechanical valve. We will need to evaluate to see whats causing the bacteremia and at this point we dont feel endocarditis is highly on our differential. He was for the cultures finalize and go from there. Patient might need aTTE.
[2017-08-09] MEDS: Vancomycin 1,000 MG in D5% in Water 250 ML IVPB SCH (14:31)
[2017-08-09] MEDS: Ringers Solution, Lactated 1,000 ML IVC SCH ×2 (14:32→17:17)
--- NOTE | 2017-08-09 17:05 | Internal Med Progress Note ---
<IgorandersonVikki serrano - Last Filed: 08/09/17 17:02> Date of Encounter: 08/09/17 Time of Encounter: 11:45 - Assessment and plan (1) Pneumonia Current Visit: Yes Status: Acute Assessment and plan: Patient with prior history of MRSA pneumonia. He reports yellow sputum production, shortness of breath, and weakness. -CT scan shows bilateral pneumonia. -Barium swallow shows no aspiration. However, considering Patient's history, it is still concerning for aspiration. -Patient's initial blood culture concerning for a contaminant. We have ordered second set of blood cultures. Patient does have a mechanical aortic valve. -Follow-up repeat blood cultures. -Causative organism of pneumonia is unclear. -Follow-up sputum culture and send urine for S pneumo and Legionella. -Per ID, we have made the following changes to the patient's antibiotics: Day 2 of cefepime, DC Levaquin today, and day 3 of vancomycin, add Flagyl 500 mg IV 3 times a day. The addition of Flagyl's cover for possible aspiration. -Repeat chest x-ray in 2 days. -FU Echo JOAN to rule out any vegetations while awaiting blood cultures. Qualifiers: Pneumonia type: due to unspecified organism Laterality: bilateral Lung location: unspecified part of lung Qualified Code(s): J18.9 - Pneumonia, unspecified organism (2) Diabetic ulcer of heel Current Visit: Yes Status: Acute Assessment and plan: Diabetic right heel ulcer with dry as sharp. No fluctuance, no erythema, no streaking. -Podiatry ordered a heel medics boot. -They recommend no surgical debridement as patient's INR 6.7. -Dietary has ordered vascular studies of the bilateral lower extremities due to diminished pedal pulses and small vessel vascular calcifications seen on CT. -If vascular studies are within normal limits and once INR is therapeutic, podiatry recommend enzymatic D brighter to the right heel ulcer. - Qualifiers: Diabetes mellitus type: type 2 Laterality: right Non-pressure ulcer stage : with other severity Qualified Code(s): E11.621 - Type 2 diabetes mellitus with foot ulcer; L97.418 - Non-pressure chronic ulcer of right heel and midfoot with other specified severity; L97.418 - Non-pressure chronic ulcer of right heel and midfoot with other specified severity (3) Urinary tract infection Current Visit: Yes Status: Acute Assessment and plan: Urinalysis suggestive of UTI. -Prior history of MRSA UTI. -Contact precautions -Causative organism MRSA. -Continue antibiotics above. -We left Ya catheter in place this patient has a decubitus ulcer. We will consider discontinuing this tomorrow. Qualifiers: Urinary tract infection type: catheter-associated UTI Indwelling urinary catheter type: indwelling urethral catheter Encounter type: initial encounter Qualified Code(s): T83.511A - Infection and inflammatory reaction due to indwelling urethral catheter, initial encounter; N39.0 - Urinary tract infection , site not specified; N39.0 - Urinary tract infection, site not specified (4) Acute exacerbation of chronic obstructive pulmonary disease (COPD) Current Visit: Yes Status: Acute Assessment and plan: Continue duo nebs, steroids, and antibiotics. (5) Elevated INR (international normalized ratio) due to prior anticoagulant medication ingestion Current Visit: No Status: Acute Assessment and plan: Patient's INR 6.7. We will hold Coumadin. Pharmacy to dose. (6) Mechanical heart valve present Current Visit: No Status: Chronic Assessment and plan: Patient with remote history of rheumatic fever and bicuspid aortic valve. -Hold Coumadin due to a supratherapeutic INR. (7) Coronary artery disease Current Visit: No Status: Chronic Assessment and plan: Continue home medications Qualifiers: Coronary Disease-Associated Artery/Lesion type: unspecified vessel or lesion type [place] vs. transplanted heart: [place] heart Associated angina: without angina Qualified Code(s): I25.10 - Atherosclerotic heart disease of [place] coronary artery without angina pectoris (8) HTN (hypertension) Current Visit: No Status: Chronic Assessment and plan: Continue to monitor. 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 -CT brain reveals no acute intracranial abnormality. -Follow speech PT OT recommendations. (10) Severe protein-calorie malnutrition Current Visit: Yes Status: Acute Assessment and plan: Pureed diet. -Follow nutrition recommendations. (11) Intracranial shunt Current Visit: Yes Status: Chronic Assessment and plan: CT brain reveals trans-right frontal ventriculostomy catheter with termination in the left frontal horn. No features to suggest acute hydrocephalus. (12) DVT prophylaxis Current Visit: Yes Status: Acute - Subjective Interval history: Mr. Carrasco is a 62-year-old male with past medical history of diabetes mellitus, COPD, VA with a stage and right sided paralysis, history of tracheostomy, and a prosthetic aortic valve. He presented to the emergency department with a persistent cough producing sputum. He was found to have bilateral pneumonia and UTI. This morning, patient is resting comfortably. His is by his side. She states this is his basline. He denies any complaints including shortness of breath or chest pain, nausea vomiting or diarrhea, or dizziness or lightheadedness, however, it is unclear as to how much he understands. - Constitutional Vitals: Temp Pulse Resp BP Pulse Ox 98.3 F 66 16 124/88 97 08/09/17 15:37 08/09/17 15:37 08/09/17 15:37 08/09/17 15:37 08/09/17 15:37 General appearance: Present: cooperative, mild distress. Absent: answers questions appropriately - Respiratory Respiratory exam: Present: CTAB, rales (Mild bilaterally.). Absent: accessory muscle use, rhonchi, wheezes - Cardiovascular Cardiovascular exam: Present: RRR, +S1, +S2. Absent: diastolic murmur, gallop, rubs, systolic murmur - GI/Abdominal GI/Abdominal exam: Present: normal bowel sounds, soft, no peritoneal signs. Absent: distended, tenderness - Extremities Exam Extremities exam: Present: normal capillary refill, warm. Absent: calf tenderness, cyanotic, pedal edema, tenderness Additional comments: Patient with a heel medics boot in place per wound care. Internal Medicine: Result - Labs CBC & Chem 7: 08/09/17 03:23 08/09/17 03:23 Labs: Short CBC 08/09/17 Range/Units 03:23 WBC 5.6 (4.3-11.1) K/mcL Hgb 11.0 L (12.9-16.9) g/dL Hct 33.2 L (37.5-50.1) % Plt Count 246 (140-400) K/mcL Neutrophils # 4.7 (1.6-8.9) K/mcL BMP 08/09/17 03:23 Sodium 132 L Potassium 3.5 Chloride 108 Carbon Dioxide 14 L BUN 10 Creatinine 0.65 L Glucose 203 H Calcium 8.6 - ABG Interpretation ABG results: PT/INR, D-dimer PT 75.1 Seconds (9.4-12.1) H* 08/09/17 03:23 - VTE Documentation of Mechanical Device: Intermittent pneumatic compression device Consult Discharge Plan - Plan Referrals: Seven Jean MD [Primary Care Provider] - 08/14/17 1:15 pm <Robe Yee - Last Filed: 08/09/17 18:00> Date of Encounter: 08/09/17 - Constitutional Vitals: Temp Pulse Resp BP Pulse Ox 98.3 F 66 16 124/88 97 08/09/17 15:37 08/09/17 15:37 08/09/17 15:37 08/09/17 15:37 08/09/17 15:37 Internal Medicine: Result - Labs CBC & Chem 7: 08/09/17 03:23 08/09/17 03:23 Labs: Short CBC 08/09/17 Range/Units 03:23 WBC 5.6 (4.3-11.1) K/mcL Hgb 11.0 L (12.9-16.9) g/dL Hct 33.2 L (37.5-50.1) % Plt Count 246 (140-400) K/mcL Neutrophils # 4.7 (1.6-8.9) K/mcL BMP 08/09/17 03:23 Sodium 132 L Potassium 3.5 Chloride 108 Carbon Dioxide 14 L BUN 10 Creatinine 0.65 L Glucose 203 H Calcium 8.6 - ABG Interpretation ABG results: PT/INR, D-dimer PT 75.1 Seconds (9.4-12.1) H* 08/09/17 03:23 - Attending Attestation I have seen and examined the patient independently. I have discussed with the resident Dr Todd regarding the management plan, agreed with the documentation. Patient feels fine, cough improved. No shortness of breath. Will continue antibiotic, adjusted per ID recommendation. Continue closely monitor patient. Patient has 1 out of 2 blood culture positive, will repeat blood culture and follow ID recommendation.
[2017-08-09] MEDS ORDERED: Aminoglycoside Consult 1 EACH MC ONE (19:14)
[2017-08-09] MEDS ORDERED: Insulin LISPRO 300 UNITS/3 ML VIAL SQ SCH (21:00)
[2017-08-09] MEDS: Famotidine 20 MG TABLET PO SCH (21:11)
[2017-08-10] MEDS: Vancomycin 1,000 MG in D5% in Water 250 ML IVPB SCH ×2 (03:31→14:57)
[2017-08-10] MEDS: Ringers Solution, Lactated 1,000 ML IVC SCH ×3 (03:32→15:09)
[2017-08-10] MEDS: Cefepime HCl 2,000 MG in D5% in Water (Mini-Bag+) 100 ML IVPB SCH ×2 (05:04→19:09)
[2017-08-10 05:29] LABS: Basophils % 0.2 %; Eosinophils % 0.2 %; Hematocrit 31.8 % (37.5-50.1); Hemoglobin 10.6 g/dL (12.9-16.9); Immature Granulocytes % 0.6 % (0-4); Lymphocytes # 1.3 K/mcL (0.6-4.6); Lymphocytes % 20.4 %; Mean Corpuscular HGB Conc 33.3 g/dL (31.6-35.5); Mean Corpuscular Hemoglobin 28.4 pg (28.0-33.3); Mean Corpuscular Volume 85.3 fL (83.0-100.0); Mean Platelet Volume 9.1 fL (9.4-12.4); Monocytes # 0.5 K/mcL (0.0-1.3); Monocytes % 7.5 %; Neutrophils # 4.6 K/mcL (1.6-8.9); Platelet Count 220 K/mcL (140-400); Red Blood Count 3.73 M/mcL (4.19-5.50); Red Cell Distribution Width 14.3 % (11.5-14.5); Segmented Neutrophils % 71.1 %
[2017-08-10 05:43] LABS: BUN/Creatinine Ratio 11 (6-26); Blood Urea Nitrogen 6 mg/dL (8-26); Calcium 8.4 mg/dL (8.6-10.8); Carbon Dioxide 22 mEq/L (19-29); Chloride 105 mEq/L (98-109); Glucose 81 mg/dL (70-99); Magnesium 1.3 mg/dL (1.6-2.6); Osmolality,Calculated 275 (280-300); Sodium 134 mEq/L (136-145); eGFR For African Americans > 60 (> 60); eGFR For Non-African Americans > 60 (> 60)
[2017-08-10 06:05] LABS: INR 7.8
[2017-08-10 06:14] LABS: Burr Cells 1+ (Not Present); Ovalocytes 1+ (Not Present); Platelet Estimate Normal (Normal); Poikilocytosis 1+ (Not Present)
[2017-08-10] MEDS: Magnesium Oxide 400 MG TABLET PO SCH (08:19)
[2017-08-10] MEDS: Sennosides/Docusate Sodium TABLET PO SCH (08:20)
[2017-08-10] MEDS: Insulin LISPRO 300 UNITS/3 ML VIAL SQ SCH ×3 (08:20→16:51)
[2017-08-10] MEDS: Levofloxacin 750 MG/150 ML 750 MG/150 ML BAG IVPB SCH (08:20)
[2017-08-10] MEDS: Famotidine 20 MG TABLET PO SCH (08:20)
[2017-08-10] MEDS ORDERED: Magnesium Sulfate 2 GM in D5% in Water 100 ML IVPB ONE (08:55)
--- NOTE | 2017-08-10 08:59 | Internal Med Progress Note ---
Date of Encounter: 08/10/17 Time of Encounter: 08:59 - Assessment and plan (1) Pneumonia Current Visit: Yes Status: Acute Qualifiers: Pneumonia type: due to unspecified organism Laterality: bilateral Lung location: unspecified part of lung Qualified Code(s): J18.9 - Pneumonia, unspecified organism (2) Diabetic ulcer of heel Current Visit: Yes Status: Acute Qualifiers: Diabetes mellitus type: type 2 Laterality: right Non-pressure ulcer stage : with other severity Qualified Code(s): E11.621 - Type 2 diabetes mellitus with foot ulcer; L97.418 - Non-pressure chronic ulcer of right heel and midfoot with other specified severity; L97.418 - Non-pressure chronic ulcer of right heel and midfoot with other specified severity (3) Urinary tract infection Current Visit: Yes Status: Acute Qualifiers: Urinary tract infection type: catheter-associated UTI Indwelling urinary catheter type: indwelling urethral catheter Encounter type: initial encounter Qualified Code(s): T83.511A - Infection and inflammatory reaction due to indwelling urethral catheter, initial encounter; N39.0 - Urinary tract infection , site not specified; N39.0 - Urinary tract infection, site not specified (4) Acute exacerbation of chronic obstructive pulmonary disease (COPD) Current Visit: Yes Status: Acute (5) Elevated INR (international normalized ratio) due to prior anticoagulant medication ingestion Current Visit: No Status: Acute (6) Mechanical heart valve present Current Visit: No Status: Chronic (7) Coronary artery disease Current Visit: No Status: Chronic Qualifiers: Coronary Disease-Associated Artery/Lesion type: unspecified vessel or lesion type [place] vs. 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 Carrasco is a 62-year-old male with past medical history of diabetes mellitus, COPD, [place] with a stage and right sided paralysis, history of tracheostomy, and a prosthetic aortic valve. He presented to the emergency department with a persistent cough producing sputum. He was found to have bilateral pneumonia and UTI. This morning, patient is resting comfortably. His is by his side. She states this is his basline. He denies any complaints including shortness of breath or chest pain, nausea vomiting or diarrhea, or dizziness or lightheadedness, however, it is unclear as to how much he understands. - Constitutional Vitals: Temp Pulse Resp BP Pulse Ox 97.6 F 72 15 107/73 94 08/10/17 08:11 08/10/17 08:11 08/10/17 08:11 08/10/17 08:11 08/10/17 08:11 General appearance: Present: cooperative, mild distress. Absent: answers questions appropriately Internal Medicine: Result - Labs CBC & Chem 7: 08/10/17 05:00 08/10/17 05:00 Labs: Short CBC 08/10/17 Range/Units 05:00 WBC 6.4 (4.3-11.1) K/mcL Hgb 10.6 L (12.9-16.9) g/dL Hct 31.8 L (37.5-50.1) % Plt Count 220 (140-400) K/mcL Neutrophils # 4.6 (1.6-8.9) K/mcL BMP 08/10/17 05:00 Sodium 134 L Potassium 3.0 L Chloride 105 Carbon Dioxide 22 BUN 6 L Creatinine 0.57 L Glucose 81 Calcium 8.4 L - ABG Interpretation ABG results: PT/INR, D-dimer PT 88.0 Seconds (9.4-12.1) H* 08/10/17 05:00 - VTE Documentation of Mechanical Device: Intermittent pneumatic compression device Consult Discharge Plan - Plan Referrals: Seven Jean MD [Primary Care Provider] - 08/14/17 1:15 pm
[2017-08-10] MEDS ORDERED: Potassium Chloride 40 MEQ, Lidocaine 1% 2 ML in D5% in Water 500 ML IVPB ONE (09:38)
[2017-08-10] MEDS ORDERED: Lactobacillus 1 EACH CAP.SPRINK PO SCH (11:30)
--- NOTE | 2017-08-10 11:33 | Infectious Disease Progress No ---
Date of Encounter: 08/10/17 Time of Encounter: 11:31 - Assessment and Plan (1) Bacteremia Current Visit: Yes Status: Acute Causative organism unclear. Blood cultures drawn 08/07/17 are positive 1/2 sets for GPC but PCR did not seed cone picker anything. Discussed with Yvonne in the Micro lab who states it looks like a CONS. Had to send to outside lab for additional testing so final ID will be delayed. Source unclear, but given the lack of sepsis and that only 1 blood culture is positive, consider that this may be a contaminant. The patient has a mechanical aortic valve. If this is deemed a true bacteremia, will need to treat as complicated. No endocarditis stigmata noted on exam. Repeat blood cultures x 2 sets drawn 08/09/17 are pending. Continue Vancomycin IV for now. Pharmacy to dose. Goal trough ~15. Duration of treatment depends on the clinical picture. Monitor renal function and for drug toxicity and dose-adjust antibiotics (2) Pneumonia Current Visit: Yes Status: Acute Location: Right infrahilar and left medial basilar. Causative organism unclear. Given the patient's history of CVA, concern for aspiration despite normal modified barium swallow test. Send sputum for gram stain and culture if the patient is able to give an adequate sample.--> pending collection. May need to get RTS to induce sputum for collection. Send urine for S. pneumo and Legionella UAT.--> pending collection. Repeat CXR in the morning. Patient is listed as PCN allergic, but unsure that the patient has a true allergy. Requested that patient be evaluated for PCN allergy testing, but because the patient is unable to reliably communicate symptoms that could be associated with allergy, unable to perform testing. Continue Cefepime 2 grams IV Q12H. Continue Vancomycin as above. Continue Flagyl 500mg IV Q8H to cover possible aspiration. Duration of treatment depends on the clinical picture. Monitor renal function and for drug toxicity and dose-adjust antibiotics. Qualifiers: Pneumonia type: due to unspecified organism Laterality: bilateral Lung location: unspecified part of lung Qualified Code(s): J18.9 - Pneumonia, unspecified organism (3) Urinary tract infection Current Visit: Yes Status: Acute Asymptomatic bacteriuria vs. true infection. Per the patient's , the patient had no urinary complaints prior to admission , but concern that the patient may not be able to communicate symptoms. Causative organism MRSA and VRE. Continue antibiotics as above. Start nitrofurantoin 100mg PO BID for VRE coverage. Qualifiers: Urinary tract infection type: catheter-associated UTI Indwelling urinary catheter type: indwelling urethral catheter Encounter type: initial encounter Qualified Code(s): T83.511A - Infection and inflammatory reaction due to indwelling urethral catheter, initial encounter; N39.0 - Urinary tract infection , site not specified; N39.0 - Urinary tract infection, site not specified (4) Diabetic ulcer of heel Current Visit: Yes Status: Acute Location: Right heel. CT scan of the RLE negative for OM or abscess. ESR 106, CRP 218, but these could be elevated secondary to the patient's PNA. Bilateral ABIs normal. Podiatry consulted and following. Aggressive wound care. Clinically, does not appear acutely infected, but the antibiotics for the patient's PNA should cover in case there is underlying infection. Qualifiers: Diabetes mellitus type: type 2 Laterality: right Non-pressure ulcer stage : with other severity Qualified Code(s): E11.621 - Type 2 diabetes mellitus with foot ulcer; L97.418 - Non-pressure chronic ulcer of right heel and midfoot with other specified severity; L97.418 - Non-pressure chronic ulcer of right heel and midfoot with other specified severity (5) Elevated INR (international normalized ratio) due to prior anticoagulant medication ingestion Current Visit: No Status: Acute Continued elevation remains unclear as the patient has not had coumadin since being admitted. Further workup and management per the primary team. (6) Mechanical heart valve present Current Visit: No Status: Chronic (7) Constipation Current Visit: Yes Status: Acute CT of the abdomen and pelvis shows fecal impaction. Bowel regimen per the primary team's recommendations. 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 (9) Severe protein-calorie malnutrition Current Visit: Yes Status: Acute (10) Diabetes mellitus Current Visit: No Status: Chronic Controlled. HgbA1C 5.3%. Recommend aggressive glucose monitoring and control to promote wound healing and prevent infection. Qualifiers: Diabetes mellitus type: type 2 Diabetes mellitus complication status: with skin complications Diabetes mellitus complication detail: with foot ulcer Diabetes mellitus skilled nursing insulin use: without database engineer use Qualified Code( s): E11.621 - Type 2 diabetes mellitus with foot ulcer; L97.509 - Non-pressure chronic ulcer of other part of unspecified foot with unspecified severity; L97.509 - Non-pressure chronic ulcer of other part of unspecified foot with unspecified severity; L97.509 - Non-pressure chronic ulcer of other part of unspecified foot with unspecified severity; L97.509 - Non-pressure chronic ulcer of other part of unspecified foot with unspecified severity - Subjective Interval history: Patient seen and examined with his at the bedside. No acute events noted overnight. Patient awake and alert, but only answers yes/no questions. Reports chills overnight. No fevers documented. Denies chest pain or shortness of breath this morning. states she thinks his cough is about the same, but I have not witnessed the patient coughing during either of the two encounters I have had with the patient. Patient denies abdominal pain, nausea, or vomiting. He continues to have a taylor catheter. He reports chronic back pain and right hand pain. Infect Dis PN-Objective Data - Labs CBC & Chem 7: 08/10/17 05:00 08/10/17 05:00 Labs: Laboratory Results - last 24 hr 08/10/17 08/10/17 08/10/17 05:00 05:00 05:00 WBC 6.4 RBC 3.73 L Hgb 10.6 L Hct 31.8 L MCV 85.3 MCH 28.4 MCHC 33.3 RDW 14.3 Plt Count 220 MPV 9.1 L Immature Gran % 0.6 Seg Neutrophils % 71.1 Lymphocytes % 20.4 Monocytes % 7.5 Eosinophils % 0.2 Basophils % 0.2 Neutrophils # 4.6 Lymphocytes # 1.3 Monocytes # 0.5 Eosinophils # 0.0 Basophils # 0.0 Platelet Estimate Normal Poikilocytosis 1+ A Ovalocytes 1+ A [place] Cells 1+ A PT 88.0 H* INR 7.8 H* Sodium 134 L Potassium 3.0 L Chloride 105 Carbon Dioxide 22 BUN 6 L Creatinine 0.57 L Est GFR ( Amer) > 60 Est GFR (Non-Af Amer) > 60 BUN/Creatinine Ratio 11 Glucose 81 POC Glucose Calculated Osmolality 275 L Calcium 8.4 L Magnesium 1.3 L 08/10/17 08:07 WBC RBC Hgb Hct MCV MCH MCHC RDW Plt Count MPV Immature Gran % Seg Neutrophils % Lymphocytes % Monocytes % Eosinophils % Basophils % Neutrophils # Lymphocytes # Monocytes # Eosinophils # Basophils # Platelet Estimate Poikilocytosis Ovalocytes Tina Cells PT INR Sodium Potassium Chloride Carbon Dioxide BUN Creatinine Est GFR ( Amer) Est GFR (Non-Af Amer) BUN/Creatinine Ratio Glucose POC Glucose 71 Calculated Osmolality Calcium Magnesium Exam - Constitutional Vitals: Temp Pulse Resp BP Pulse Ox 97.6 F 72 15 107/73 94 08/10/17 08:11 08/10/17 08:11 08/10/17 08:11 08/10/17 08:11 08/10/17 08:11 General appearance: average body habitus, cooperative, no acute distress - Head Head exam: Present: atraumatic, normal inspection, normocephalic - Eye Eye exam: Present: normal appearance, PERRL Pupils: Present: normal accommodation - ENT ENT exam: Present: mucous membranes moist - Neck Neck exam: Present: normal inspection Additional comments: Previous tracheostomy site is well-healed. - Respiratory Respiratory exam: Present: CTAB. Absent: rales, respiratory distress, rhonchi, wheezes - Cardiovascular Cardiovascular exam: Present: RRR, +S1, +S2 - GI/Abdominal GI/Abdominal exam: Present: normal bowel sounds, soft. Absent: distended, tenderness Additional comments: Taylor catheter noted to be draining clear yellow urine. - Extremities Exam Extremities exam: Present: tenderness (right hand). Absent: joint swelling, pedal edema Additional comments: 1+ Edema noted to the RUE - Neurological Exam Neurological exam: Present: alert. Absent: no focal deficits (Paralysis noted to the RUE and RLE) Additional comments: Patient answers yes/no questions, but does not otherwise verbalize. Follows most commands. - Psychiatric Psychiatric exam: Present: normal affect, normal mood - Skin Skin exam: Present: dry, intact, normal color, warm - VTE Documentation of Mechanical Device: Intermittent pneumatic compression device Consult Discharge Plan - Plan Referrals: Seven Jean MD [Primary Care Provider] - 08/14/17 1:15 pm - Attending Attestation I examined this patient and my medical decision-making was reviewed with the Resident Physician. I agree with the documented findings, disposition and treatment plan as described except to the extent set forth below.
--- NOTE | 2017-08-10 13:40 | Discharge Summary ---
<IgorandersonVikki serrano - Last Filed: 08/10/17 14:36> Date of Encounter: 08/10/17 Time of Encounter: 11:00 - Discharge Diagnosis (1) Urinary tract infection Priority: Primary Status: Acute Qualifiers: Urinary tract infection type: acute cystitis Hematuria presence: without hematuria Qualified Code(s): N30.00 - Acute cystitis without hematuria (2) Pneumonia Priority: Primary Status: Acute Qualifiers: Pneumonia type: due to unspecified organism Laterality: bilateral Lung location: unspecified part of lung Qualified Code(s): J18.9 - Pneumonia, unspecified organism (3) Infective endocarditis of aortic valve Priority: Secondary Status: Suspected (4) Diabetic ulcer of heel Priority: Secondary Status: Acute Qualifiers: Diabetes mellitus type: type 2 Laterality: right Non-pressure ulcer stage : with other severity Qualified Code(s): E11.621 - Type 2 diabetes mellitus with foot ulcer; L97.418 - Non-pressure chronic ulcer of right heel and midfoot with other specified severity; L97.418 - Non-pressure chronic ulcer of right heel and midfoot with other specified severity (5) Acute exacerbation of chronic obstructive pulmonary disease (COPD) Priority: Secondary Status: Acute (6) Elevated INR (international normalized ratio) due to prior anticoagulant medication ingestion Priority: Secondary Status: Acute (7) Mechanical heart valve present Priority: Secondary Status: Chronic (8) Coronary artery disease Priority: Secondary Status: Chronic Qualifiers: Coronary Disease-Associated Artery/Lesion type: unspecified vessel or lesion type Platinum vs. 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) Priority: Secondary Status: Chronic (11) Severe protein-calorie malnutrition Priority: Secondary Status: Acute (12) Intracranial shunt Priority: Secondary Status: Chronic (13) DVT prophylaxis Priority: Secondary Status: Acute - Discharge Medications Home Medications: Lovastatin 40 mg PO HS 05/07/17 [History] Albuterol Neb [Proventil Neb] 2.5 mg IH Q2H PRN inh 05/10/17 [Rx] Magnesium Oxide [Mag-Ox] 400 mg PO DAILY 08/07/17 [History] Potassium Chloride [K-Tab ER] 20 meq PO DAILY 08/07/17 [History] Sennosides/Docusate Sodium [Senna-Docusate Sodium Tablet] 1 each PO DAILY [History] Dextrose 50 % in Water (Syg) [Dextrose 50% (Syg)] 25 ml IVP AD PRN syringe [Rx] Dextrose Gel [Gluctose] 15 gm PO ONCE PRN gel..gram. 08/10/17 [Rx] Dextrose Gel [Gluctose] 30 gm PO ONCE PRN gel..gram. 08/10/17 [Rx] Famotidine [Pepcid] 20 mg PO BID tablet 08/10/17 [Rx] Glucagon, Human Recombinant [Glucagen] 1 mg IM ONCE PRN vial 08/10/17 [Rx] Insulin LISPRO [HumaLOG] 0 units SQ HS vial 08/10/17 [Rx] Insulin LISPRO [HumaLOG] 0 units SQ TIDAC vial 08/10/17 [Rx] Ipratropium/Albuterol Neb [Duoneb] 3 ml IH [id number] PRN inhsol 08/10/17 [Rx] Lactobacillus [Culturelle] 1 each PO BID cap.sprink 08/10/17 [Rx] Nitrofurantoin (BID) [Macrobid] 100 mg PO BIDWM capsule 08/10/17 [Rx] Ondansetron ODT [Zofran ODT] 4 mg SL Q6HR PRN tab.rapdis 08/10/17 [Rx] Allergies/Adverse Reactions: 3 Allergy/AdvReac Type Severity Reaction Status Date / Time Amoxicillin [From Trimox] Allergy See Verified 03/26/17 11:34 Comments Penicillins Allergy See Verified 03/26/17 11:34 Comments heparin AdvReac See Verified 08/07/17 15:28 Comments Procedures/tests Complete & Pending: Procedures Performed prior 72 hours Category Date Time Status CT lower leg RT w con [CT] Stat Cat Scan 08/08/17 05:11 Completed EV ankle brachial index Routine Y 08/09/17 10:37 Completed EV echocardiogram Routine Y 08/09/17 10:43 Completed Date of admission: 08/07/17 17:24 Primary care physician: Seven Jean MD Consults: 08/07/17 18:20 Consult to Nutrition [CONS] Routine Comment: Consulting Provider: NUTRITION Reason for Dietary Consult: MST Score Consult to [facility] Nurse [CONS] Routine Reason for SW Consult: discharge planning 08/07/17 20:31 Consult to Nurse Navigator [CONS] Routine Comment: 08/07/17 20:49 OT [Consult to Occupational Therapy] [CONS] Routine Comment: Evaluate, develop and implement POC Reason for Consult: weakness PT [Consult to Physical Therapy] [CONS] Routine Comment: Evaluate, develop and implement POC Reason for Consult: weakness 08/07/17 21:48 Consult to Wound Care [CONS] Routine Reason for Consult: necrotic ulcer right heel, stage 1 buttock decubitus ulcer Call Completed: No 08/07/17 21:54 Consult to Speech Therapy [CONS] Routine Comment: Evaluate, develop and implement POC Reason for Consult: Possible aspiration, eval and treat Call Completed: No 08/08/17 15:18 Consult to Podiatry [CONS] Routine Consulting Provider: [facility] Reason for Consult: diabetic foot ulcer Call Completed: No 08/09/17 10:45 Consult to Infectious Diseases [CONS] Routine Consulting Provider: [facility] [place] Reason for Consult: gram positive bacteremia, MRSA UTI. echo pending. Call Completed: No 08/09/17 13:37 Consult to Invasive Line Access Team [CONS] Routine Reason for Consult: no iv access Line Type: EPIV 08/10/17 09:29 Consult to Allergy/Immunology [CONS] Stat Consulting Provider: [facility] Reason for Consult: Penicillin testing so we can start on zosyn Call Completed: No 08/10/17 11:15 Consult to Palliative Care [CONS] Routine Comment: Consulting Provider: Pall[facility] [place] Reason for Consult: new decrease in status, was from home with [facility] Call Completed: No - Patient Status Disposition: Transfer Critical Access Hosp Condition: Fair Overall status at discharge: patient is not back to baseline - Discharge Instructions Follow Up With: Seven Jean MD [Primary Care Provider] - 08/14/17 1:15 pm Hospital course: Mr. Carrasco is a 62 year old male with past medical history of diabetes mellitus, COPD, a CVA in February with right sided hemiparesis, history of tracheostomy, and a prosthetic aortic valve. He presented to [facility] on 08/07/2017 with a persistent cough producing sputum. He was found to have bilateral pneumonia as well as a UTI. Patient was admitted to the hospital after chest x-ray revealed right infrahilar lung consolidation and medial left basilar patchy consolidation. Patient had a history of prior MRSA pneumonia. His last hospitalization was 05/07/2017. Of note, patient has a history of allergy to penicillin. He was started on broad-spectrum antibiotics including vancomycin, cefepime, and Levaquin. Blood and sputum cultures were obtained. Speech was consulted for barium swallow study which was negative for aspiration. Patient was found to have a grossly positive UTI which later grew MRSA and VRE. Further, podiatry was consulted for evaluation of a right lower extremity wound for potential surgical department. However, patient had poor vascularization of his right lower extremity and a supratherapeutic INR. Therefore, podiatry was unable to surgically debride the wound. They recommended supportive care, with attempts to revisit once the INR became within normal limits. This however did not happen during this hospitalization. Patient's INR was 5.5 on admission. We held his at home Coumadin dose, however the INR continued to trend upwards and today was found to be 7.8. Infectious disease was consulted for antibiotic management of MRSA and VRE. They wished to start ampicillin for VRE which would eliminate need for cefepime and flagyl. We attempted to consult allergy to do a penicillin testing, however , because of patient's disabilities and inability to unreliably communicate, we decided the risk for anaphylaxis were too high to pursue that avenue. As a result, infectious disease added nitrofurantoin to his antibiotic regimen to cover for VRE. While patient's white count was generally found to be within normal limits and patient's heart rate remained stable, his blood pressure did trend downwards to the low 90s systolic. We gave patient a 500 L bolus today. Echocardiogram was obtained yesterday which showed questionable vegetations on the aortic mechanical valve with potential abscess. These results were communicated directly from Dr. Rice in cardiology. The decision was made to transfer the patient to [facility]. We called the [facility] transfer center, and they agreed to accept the patient once a bed became available. We had discussions with the patient's about his illnesses and prognosis, and she decided that she would like to move forward with the transfer. We had intended to consult palliative, however, we received the results of the echocardiogram, and decided to proceed with the transfer to [facility]. A second set of blood cultures were drawn on 08/09/2017 and these are still pending. Patient is currently receiving cefepime day 3, vancomycin day 4, Flagyl day 2, and nitrofurantoin was added today. - Time Spent with Patient Total time spent providing and/or coordinating discharge services: Greater than 30 minutes (40 minutes) - Constitutional Vitals: Temp Pulse Resp BP Pulse Ox 97.7 F 78 15 92/69 92 08/10/17 12:06 08/10/17 12:06 08/10/17 12:06 08/10/17 12:06 08/10/17 12:06 General appearance: Present: cooperative, mild distress. Absent: answers questions appropriately - Respiratory Respiratory exam: Present: CTAB, rhonchi. Absent: accessory muscle use, rales, respiratory distress, wheezes - Cardiovascular Cardiovascular exam: Present: distant heart sounds, RRR, +S1, +S2. Absent: diastolic murmur, gallop, rubs, systolic murmur - GI/Abdominal GI/Abdominal exam: Present: normal bowel sounds, soft, no peritoneal signs. Absent: distended, tenderness - Extremities Exam Extremities exam: Present: warm, radial pulses palpable and symmetrical ( diminished). Absent: calf tenderness, cyanotic, pedal edema Additional comments: Patient with a right-sided MedX heel boot. - VTE Documentation of Mechanical Device: Intermittent pneumatic compression device <Robe Yee - Last Filed: 08/10/17 17:05> Date of Encounter: 08/10/17 Procedures/tests Complete & Pending: Procedures Performed prior 72 hours Category Date Time Status CT lower leg RT w con [CT] Stat Cat Scan 08/08/17 05:11 Completed EV ankle brachial index Routine Y 08/09/17 10:37 Completed EV echocardiogram Routine Y 08/09/17 10:43 Completed Date of admission: 08/07/17 17:24 Primary care physician: Seven Jean MD Consults: 08/07/17 18:20 Consult to Nutrition [CONS] Routine Comment: Consulting Provider: NUTRITION Reason for Dietary Consult: MST Score Consult to [facility] Nurse [CONS] Routine Reason for SW Consult: discharge planning 08/07/17 20:31 Consult to Nurse Navigator [CONS] Routine Comment: 08/07/17 20:49 OT [Consult to Occupational Therapy] [CONS] Routine Comment: Evaluate, develop and implement POC Reason for Consult: weakness PT [Consult to Physical Therapy] [CONS] Routine Comment: Evaluate, develop and implement POC Reason for Consult: weakness 08/07/17 21:48 Consult to Wound Care [CONS] Routine Reason for Consult: necrotic ulcer right heel, stage 1 buttock decubitus ulcer Call Completed: No 08/07/17 21:54 Consult to Speech Therapy [CONS] Routine Comment: Evaluate, develop and implement POC Reason for Consult: Possible aspiration, eval and treat Call Completed: No 08/08/17 15:18 Consult to Podiatry [CONS] Routine Consulting Provider: Podiatry [facility] Reason for Consult: diabetic foot ulcer Call Completed: No 08/09/17 10:45 Consult to Infectious Diseases [CONS] Routine Consulting Provider: [facility] Reason for Consult: gram positive bacteremia, MRSA UTI. echo pending. Call Completed: No 08/09/17 13:37 Consult to Invasive Line Access Team [CONS] Routine Reason for Consult: no iv access Line Type: EPIV 08/10/17 09:29 Consult to Allergy/Immunology [CONS] Stat Consulting Provider: [facility] Reason for Consult: Penicillin testing so we can start on zosyn Call Completed: No 08/10/17 11:15 Consult to Palliative Care [CONS] Routine Comment: Consulting Provider: [facility] Reason for Consult: new decrease in status, was from home with [facility] Call Completed: No Hospital course: Mr. Carrasco is a 62 year old male - Time Spent with Patient Total time spent providing and/or coordinating discharge services: - Constitutional Vitals: Temp Pulse Resp BP Pulse Ox 97.4 F L 78 16 115/79 97 08/10/17 16:22 08/10/17 16:22 08/10/17 16:22 08/10/17 16:22 08/10/17 16:22 - Attending Attestation I have seen and examined the patient independently. I have discussed with resident Dr Shirley regarding the management plan. Agree with the documentation. Patient was admitted for pneumonia. He was treated with antibiotic with vancomycin, cefepime, Flagyl. Patient was also found bacteremia, UTI with MRSA and VRE. He can also has right heel pressure ulcer. ID consult and podiatry consult saw patient. Patient has history of mechanical valve replacement on Coumadin. INR is supratherapeutic since admission, no active bleeding. Echocardiogram shows suspected intra-heart thrombosis and vegetation. Discussed with cardiology, recommended transfer patient to high-level facility for management. Patient's family prefer [facility] transfer. We called [facility], patient was accepted and will arrange transfer as soon as bed available. Continue closely monitor patient before transfer. Patient's vitals are stable at this point.
[2017-08-10] MEDS ORDERED: 0.9 % Sodium Chloride 500 ML IVC ONE (13:49)
--- NOTE | 2017-08-10 14:58 | Palliative - Consult Note ---
Date of Encounter: 08/10/17 Time of Encounter: 11:45 - Assessment and Plan (1) Elevated INR (international normalized ratio) due to prior anticoagulant medication ingestion Current Visit: No Status: Acute Assessment and plan: Being managed by hospitalist team, plan per hospitalist team (2) Goals of care, counseling/discussion Current Visit: Yes Status: Acute Assessment and plan: Long discussion with patient's who is his medical power of insurance attorney Kenneth in the past he wishes to remain a full code. I do believe she understands the implications of this given his overall situation. Also care have changed since the diagnosis of the patient's on his mechanical valve. Only the plan was for the patient to get additional therapy to home after IV antibiotics were completed. I am told the patient be transferred to a [facility] for further treatment. Patient and family are considering returning to hospice after this is resolved. However at this time they have revoked hospice and wish to have aggressive care. (3) Mechanical heart valve present Current Visit: No Status: Chronic Assessment and plan: Being managed by hospitalist team, plan per hospitalist team and cardiology (4) Hemiparesis of right dominant side Current Visit: Yes Status: Acute Assessment and plan: After the infections are cleared up family would like to have therapy. Qualifiers: Hemiparesis etiology: cerebrovascular etiology Cerebrovascular disease type : unspecified Qualified Code(s): I67.9 - Cerebrovascular disease, unspecified ; G81.91 - Hemiplegia, unspecified affecting right dominant side; G81.91 - Hemiplegia, unspecified affecting right dominant side; G81.91 - Hemiplegia, unspecified affecting right dominant side (5) Severe protein-calorie malnutrition Current Visit: Yes Status: Acute Assessment and plan: Patient has no appetite, but has been able to eat. Did have a history of a PEG tube but this has been removed. She will be transferred prior to any further intervention by nutrition. (6) Diabetic ulcer of heel Current Visit: Yes Status: Acute Assessment and plan: Podiatry following. Qualifiers: Diabetes mellitus type: type 2 Laterality: right Non-pressure ulcer stage : with other severity Qualified Code(s): E11.621 - Type 2 diabetes mellitus with foot ulcer; L97.418 - Non-pressure chronic ulcer of right heel and midfoot with other specified severity; L97.418 - Non-pressure chronic ulcer of right heel and midfoot with other specified severity (7) Infective endocarditis of aortic valve Current Visit: Yes Status: Suspected Assessment and plan: Being managed by hospitalist team, plan per hospitalist team infectious disease and cardiology. Palliative-CN HPI - Data of Consult Patient: new to practice Requesting Physician: Robe Yee MD Primary Care Provider: Seven Jean MD - Consult Narrative Palliative Care/Comfort Measures: Palliative care History of present illness: Mr. Carrasco is a 62 year old male With a history of CVA and had previously been in [facility] hospice who comes into the hospital with several day history of cough productive of yellow to green sputum and a history of prior MRSA in the lungs. She had strep throat week prior to admission so had decreased appetite and weight loss Ackles from the right heel. At time of admission patient denies any fever chills chest pain aspiration nausea vomiting diarrhea or constipation any dysuria or leg edema. He has had a barium swallow was negative for aspiration. The patient does have a history of having had a trach and a PEG both have been reversed. In the hospital patient was found to have a an infected heel which is being followed by podiatry, he has a urinary tract infection, as well as a pneumonia. Hospitalist team noted that he had a vegetation on his artificial valve and also thrombus there. It appears the patient was in [facility] hospice for adult failure to thrive, only secondary to his CVA. However the patient does take in nourishment, is cooperative with his care. Palliative care was counseled regarding patient's full CODE STATUS and whether or not he wished to return to hospice. We see the assessment and plan. CC: Robe Yee MD Coughing, shortness of breath Past Med Surg Social Fam HX - Past Medical History Medical history: CHF, COPD, CVA (Hemorrhagic and ischemic December 2016), diabetes , hyperlipidemia, hypertension, myocardial infarction, valvular heart disease, other (Right sided hemiparesis) Psychiatric history: depression - Past Surgical History Surgical History: appendectomy, coronary bypass (CABG), vascular surgery, other (Mechanical aortic valve, right frontal ventriculostomy shunt) - Social History Smoking Status: Former smoker Smokeless Tobacco Status: No Alcohol use: none Drug use: none - Family History Mother Living Status: Hx Family Cardiac Disorders: Yes Hx Family Endocrine Disorder: Yes (DM) Father Living Status: Hx Family Cardiac Disorders: Yes Hx Family Endocrine Disorder: Yes (DM) Medications and Allergies Lovastatin 40 mg PO HS 05/07/17 [History] Albuterol Neb [Proventil Neb] 2.5 mg IH Q2H PRN inh 05/10/17 [Rx] Magnesium Oxide [Mag-Ox] 400 mg PO DAILY 08/07/17 [History] Potassium Chloride [K-Tab ER] 20 meq PO DAILY 08/07/17 [History] Sennosides/Docusate Sodium [Senna-Docusate Sodium Tablet] 1 each PO DAILY [History] Dextrose 50 % in Water (Syg) [Dextrose 50% (Syg)] 25 ml IVP AD PRN syringe [Rx] Dextrose Gel [Gluctose] 15 gm PO ONCE PRN gel..gram. 08/10/17 [Rx] Dextrose Gel [Gluctose] 30 gm PO ONCE PRN gel..gram. 08/10/17 [Rx] Famotidine [Pepcid] 20 mg PO BID tablet 08/10/17 [Rx] Glucagon, Human Recombinant [Glucagen] 1 mg IM ONCE PRN vial 08/10/17 [Rx] Insulin LISPRO [HumaLOG] 0 units SQ HS vial 08/10/17 [Rx] Insulin LISPRO [HumaLOG] 0 units SQ TIDAC vial 08/10/17 [Rx] Ipratropium/Albuterol Neb [Duoneb] 3 ml IH [id number] PRN inhsol 08/10/17 [Rx] Lactobacillus [Culturelle] 1 each PO BID cap.sprink 08/10/17 [Rx] Nitrofurantoin (BID) [Macrobid] 100 mg PO BIDWM capsule 08/10/17 [Rx] Ondansetron ODT [Zofran ODT] 4 mg SL Q6HR PRN tab.rapdis 08/10/17 [Rx] 3 Allergy/AdvReac Type Severity Reaction Status Date / Time Amoxicillin [From Trimox] Allergy See Verified 03/26/17 11:34 Comments Penicillins Allergy See Verified 03/26/17 11:34 Comments heparin AdvReac See Verified 08/07/17 15:28 Comments - Constitutional Constitutional ROS PAL: decreased appetite, anorexia, lethargy - EENT Eyes: no discharge, no pain Ears: no ear discharge, no ear pain Ears, nose, mouth, throat: no mouth pain, no nasal congestion, no nasal discharge - Cardiovascular Cardiovascular ROS: no chest pain, no chest pain at rest - Respiratory Respiratory: cough, dyspnea, pain on inspiration - Gastrointestinal Gastrointestinal: constipation, no diarrhea, no nausea, no vomiting - Genitourinary Genitourinary ROS male: no urinary frequency, no urinary hesitancy, no urinary incontinence - Musculoskeletal Musculoskeletal ROS IM: arthralgias, myalgias - Integumentary ROS Integumentary: sores (On the heel) - Neurological Neurological ROS: abnormal movements, focal weakness, lack of coordination, weakness - Psychiatric Psychiatric general PM: change in appetite, no irritability - Endocrine Endocrine IM: other (History diabetes) Palliative Care-Exam - Constitutional Vitals: Temp Pulse Resp BP Pulse Ox 97.7 F 78 15 92/69 92 08/10/17 12:06 08/10/17 12:06 08/10/17 12:06 08/10/17 12:06 08/10/17 12:06 General appearance: Present: cooperative, no acute distress - Head Head Exam: Present: atraumatic, normal inspection - Eye Eye exam: Present: normal appearance - ENT ENT exam: Present: mucous membranes moist - Respiratory Respiratory exam: Present: decreased breath sounds, rhonchi - Cardiovascular Cardiovascular exam: Present: RRR, systolic murmur - GI/Abdominal Exam GI/Abdominal exam: Present: normal bowel sounds, soft. Absent: tenderness - Catheter Type: Urethral (Ya) - Extremities Exam Extremities exam: Present: normal inspection, tenderness (Right heel has a diabetic ulcer.). Absent: pedal edema - Neurological Exam Neurological exam: Present: motor sensory deficit, speech deficit. Absent: reflexes normal, no focal deficits - Psychiatric Psychiatric exam: Absent: agitated, normal affect - Skin Skin exam: Present: dry, warm Internal Medicine - CN: Reslt - Labs CBC & Chem 7: 08/10/17 05:00 08/10/17 05:00 Labs: Short CBC 08/10/17 Range/Units 05:00 WBC 6.4 (4.3-11.1) K/mcL Hgb 10.6 L (12.9-16.9) g/dL Hct 31.8 L (37.5-50.1) % Plt Count 220 (140-400) K/mcL Neutrophils # 4.6 (1.6-8.9) K/mcL [facility] 08/10/17 05:00 Sodium 134 L Potassium 3.0 L Chloride 105 Carbon Dioxide 22 BUN 6 L Creatinine 0.57 L Glucose 81 Calcium 8.4 L - ABG Interpretation ABG results: PT/INR, D-dimer PT 88.0 Seconds (9.4-12.1) H* 08/10/17 05:00 - Impressions Impressions Echocardiogram 08/09/17 10:43 Impressions: Suboptimal echo windows. Moderate-severely dilated left ventricle. Moderate LV systolic dysfunction, LVEF 35-40%. There are regional wall motion abnormalities, see diagram below. The LV apex is akinetic/dyskinetic. There is an echodensity in the LV apex consistent with a thrombus. Mild left ventricular diastolic dysfunction. Normal right ventricular size and function. There is an echodensity in the left atrium near the interatrial septum just below the mitral valve annulus. It is unclear if this is a vegetation, thrombus, or an atypical artifact. Mechanical aortic valve is not well visualized. There is an aortic valve echodensity which is visualized in the short axis view that is suspicious for a valvular vegetation. An aortic root abscess cannot be excluded. Mild-moderate prosthetic valve stenosis with peak velocity 3.6 m/sec and mean gradient 26 mmHg. Transvalvular gradients have not significantly changed compared to the prior echocardiogram in 12/2012. No aortic regurgitation. Unable to estimate RVSP due to inadequate TR jet. Recommend transesophageal echo (JOAN) for further evaluation. Abnormal findings were discussed with the primary hospitalist (Dr. Yee) and the cardiology consult team (Dr. Leggett). Left Ventricular Wall Motion: Rest Echo Findings The mid inferior, basal inferior, apical septal, apical lateral, mid anterior septal, mid inferior lateral, basal anterior septal and basal inferior lateral nunez were hypokinetic. The apex and apical inferior nunez were akinetic. All other wall segments showed normal motion. Findings: Study Quality * Suboptimal echo windows. ECG Findings * Sinus rhythm with PVCs. Left Ventricle * Moderate LV systolic dysfunction, LVEF 35-40%. There are regional wall motion abnormalities, see diagram below. * The LV apex is akinetic/dyskinetic. * There is an echodensity in the LV apex consistent with a thrombus. * Moderate-severely dilated left ventricle. * Normal LV wall thickness. * Mild left ventricular diastolic dysfunction. Right Ventricle * Normal right ventricular size and function. Left Atrium * Mildly dilated left atrium. * There is an echodensity in the left atrium near the interatrial septum just below the mitral valve annulus. It is unclear if this is a vegetation, thrombus, or an atypical artifact. Right Atrium * Normal right atrial size. Aortic Valve * Mechanical aortic valve is not well visualized. * There is an aortic valve echodensity which is visualized in the short axis view that is suspicious for a valvular vegetation. An aortic root abscess cannot be excluded. * Mild-moderate prosthetic valve stenosis with peak velocity 3.6 m/sec and mean gradient 26 mmHg. Transvalvular gradients have not significantly changed compared to the prior echocardiogram in 12/2012. * No aortic regurgitation. Mitral Valve * Mild mitral annular calcification. * Mildly thickened mitral valve leaflets. * No mitral stenosis. * No mitral regurgitation. Tricuspid Valve * Normal tricuspid valve structure. * No tricuspid stenosis. * Trace tricuspid regurgitation. * Unable to estimate RVSP due to inadequate TR jet. Pulmonic Valve * Pulmonic valve not well visualized. * No pulmonic stenosis. * No pulmonic regurgitation. Aorta * Aortic root is not well visualized. Pericardium * There is no pericardial effusion present. IVC * The IVC was not visualized. Consult Discharge Plan - Plan Referrals: Seven Jean MD [Primary Care Provider] - 08/14/17 1:15 pm Palliative Quality Palliative Quality: Screen for Code Status: Yes, Screen for Goals of Care: Yes, Screen for Pain: Yes, If Pain Regimen Started, Initiate Bowel Regimen: Yes, Screen for Nausea/Vomitting: Yes Code Status: 08/07/17 20:46 Resuscitation Status: Active [RES] Routine Comment: Resuscitation Status: Full Code
[2017-08-10] MEDS ORDERED: MetroNIDAZOLE 500 MG/100 ML 500 MG/100 ML BAG IVPB SCH (16:00)
[2017-08-10 16:37] VITALS: BP 115/79
[2017-08-10] MEDS ORDERED: Nitrofurantoin (BID) 100 MG CAPSULE PO SCH (17:00)
== END 2017-08-10 19:15 | disposition critical access hospital (66) | DRG 698 ==
LOC: 3ANU 13:00 → EMEROO 13:00 → OBSVTOIN 17:24 → SUATTDRO 17:24 → 3ANU 17:50
PROVIDERS: ADMIT Nurse Practitioner Family; ATTEND Internal Medicine